=== PATIENT | female | born 1950 | race Caucasian/White ===

== ENCOUNTER 2018-11-04 12:21 | Inpatient (IN) | payer MEDICARE, MEDICAID ==
[2018-11-04] VITALS (38 sets, daily range): BP systolic 48–166; BP diastolic 23–105
[~2018-11-04] VITALS: Ht 165.1 cm; Wt 87.1 kg
--- NOTE | 2018-11-04 12:21 | NUR ---
PT BIBRA FROM APARTMENT FOUND FACE DOWN ON THE FLOOR; VOMITTED COFFEE GROUND EMESIS PER REPORT; BS HAND STONECUTTER "HI"; LAST KNOWN WELL PER FAMILY WAS LAST NIGHT. PT AAOX0, RESONSIVE TO PAINFUL STIMULI, NON-VERBAL, PT ON MONITOR; RT AND MD AT BEDSIDE
[2018-11-04] MEDS ORDERED: PANTOPRAZOLE 80 MG in IV NS 0.9% 500 ML IV ONE (12:30)
[2018-11-04] MEDS ORDERED: ONDANSETRON HCL/PF 4 MG/2 ML VIAL IVP ONE (12:30)
[2018-11-04] MEDS ORDERED: IV NS 0.9% 1,000 ML BAG IV ONE ×2 (12:30→14:00)
[2018-11-04] MEDS ORDERED: ONDANSETRON HCL/PF 4 MG/2 ML VIAL ONE (12:37)
[2018-11-04 12:43] LABS: BASOPHILS % (AUTO) 0.1 % (0.0-2.0); HEMATOCRIT 42 % (33-45); HEMOGLOBIN 13.1 g/dL (11.5-14.8); LYMPHOCYTES # (AUTO) 1.8 /CMM (0.8-4.8); LYMPHOCYTES % (AUTO) 6.8 % (20.0-44.0); MEAN CORPUSCULAR HGB CONC 31 g/dl (31.0-36.0); MEAN CORPUSCULAR VOLUME 86 fL (82-100); MONOCYTES # (AUTO) 3.2 /CMM (0.1-1.30); MONOCYTES % (AUTO) 11.9 % (2.0-12.0); NEUTROPHILS # (AUTO) 21.6 /CMM (1.8-8.9); NEUTROPHILS % (AUTO) 81.2 % (43.0-81.0); PLATELET COUNT (AUTO) 579 /CMM (150-450); RED BLOOD CELL COUNT(AUTO) 4.88 MIL/uL (4.0-5.2); WHITE BLOOD COUNT (AUTO) 26.7 K/uL (4.3-11.0)
[2018-11-04] MEDS ORDERED: PRAV20TA4 PO (12:48)
[2018-11-04] MEDS ORDERED: GLIP5TAB13 PO (12:48)
[2018-11-04] MEDS ORDERED: ATEN25TA PO (12:48)
[2018-11-04] MEDS ORDERED: METF-440 PO (12:48)
--- NOTE | 2018-11-04 12:57 | NUR ---
CALLED NURSING SUP REQUESTED ICU BED FOR THIS PATIENT
[2018-11-04 13:14] LABS: ALANINE AMINOTRANSFERASE 55 U/L (12-78); ALBUMIN 4.1 g/dL (3.4-5.0); ALKALINE PHOSPHATASE 97 U/L (46-116); ASPARTATE AMINOTRANSFERASE 133 U/L (15-37); BILIRUBIN,DIRECT 0.1 mg/dL (0.0-0.2); BILIRUBIN,TOTAL 0.6 mg/dL (0.2-1.0); CALCIUM, SERUM 9.2 mg/dL (8.5-10.1); CARBON DIOXIDE 20 mmol/L (21-32); CHLORIDE 94 mmol/L (98-107); CREATININE 1.7 mg/dL (0.6-1.3); SODIUM SERUM 136 mmol/L (136-145); TOTAL PROTEIN, SERUM 8.6 g/dL (6.4-8.2); UREA NITROGEN, BLOOD 47 mg/dL (7-18)
--- NOTE | 2018-11-04 13:15 | NUR ---
PT ADMIT TO ROOM 261 ICU
[2018-11-04 13:19] LABS: GLUCOSE 687 mg/dL (74-106)
[2018-11-04] MEDS ORDERED: CEFTRIAXONE 1GM BAG (ER ONLY) 1 GM/50 ML PIGGYBACK IV ONE (13:30)
[2018-11-04 13:43] LABS: APPEARANCE,URINE Clear (CLEAR); BILIRUBIN,URINE SMALL (NEGATIVE); BLOOD, URINE Moderate Ery/uL (NEGATIVE); COLOR,URINE Yellow (YELLOW); KETONES,URINE 40 (NEGATIVE); LEUKOCYTE ESTERASE ,URINE Negative (NEGATIVE); NITRITE, URINE Negative (NEGATIVE); PH,URINE 5.5 (5.0-8.0); PROTEIN,URINE >=300 mg/dl (NEGATIVE); UGLUCOSE 500 MG/DL mg/dL (NEGATIVE); UROBILINOGEN,URINE 0.2 EU/dL (0.2)
[2018-11-04] MEDS ORDERED: INSULIN REGULAR, HUMAN 100 UNIT/ML 10 ML VIAL ONE (13:45)
[2018-11-04] MEDS ORDERED: CEFTRIAXONE 1GM BAG (ER ONLY) 50 ML IV ONE (13:45)
--- NOTE | 2018-11-04 13:47 | NUR ---
PANEL ON-CALL PAGED
[2018-11-04] MEDS ORDERED: INSULIN REGULAR, HUMAN 100 UNIT/ML 10 ML VIAL IV ONE (14:00)
[2018-11-04 14:07] LABS: BACTERIA,URINE Many /HPF (None Seen); SQUAMOUS EPITHELIAL CELL,UR Many /HPF (None Seen)
[2018-11-04 14:08] LABS: URINE AMORPHOUS URATE Many /HPF (None Seen); WBC,URINE 0-2 /HPF (0-3)
--- NOTE | 2018-11-04 14:10 | NUR ---
REGULAR INSULIN GIVEN 4UNITS IVP PER MD ORDER
--- NOTE | 2018-11-04 14:24 | NUR ---
PT TRANSFERRED TO ICU 261 VIA ACLS PROTOCOL
--- NOTE | 2018-11-04 14:30 | NUR ---
PATIENT RECEIVED FROM ER. ROOM AIR 92% PLACED ON 2 L NC. AMS MOVES TO LOCALIZED PAIN. UNABLE TO FOLLOW COMMANDS. PATIENT WARM TO TOUCH 99.2 TEMP.NG TUBE INSERTED IN ER PATENT. IV SITES C/D/I/P. PENDING MIDLINE INSERTION. SY CATH INTACT DRAINING TO GRAVITY. TELE SINUS TACHY WITH OCCASIONAL PAC'S. JELANI AWARE OF ADMISSION
--- NOTE | 2018-11-04 15:00 | NUR ---
CHERELLE GURROLA AT BEDSIDE FOR MIDLINE INSERTION
--- NOTE | 2018-11-04 15:35 | NUR ---
natalee aware of patient breathing. increase wob, shallow. per strategic account executive please obtain abg
[2018-11-04] MEDS ORDERED: ASPI81TA44 PO (15:47)
[2018-11-04] MEDS ORDERED: MELA3TAB PO (15:47)
[2018-11-04] MEDS ORDERED: VIT1CAPS9 PO (15:47)
[2018-11-04] MEDS ORDERED: DOCU-141 PO (15:47)
[2018-11-04] MEDS ORDERED: UBID100C13 PO (15:47)
[2018-11-04] MEDS ORDERED: VITA1TAB56 PO (15:47)
[2018-11-04] MEDS ORDERED: CHOL400T11 PO (15:47)
[2018-11-04] MEDS ORDERED: ACET1TAB25 PO (15:48)
[2018-11-04] MEDS ORDERED: METH500T6 PO (15:48)
[2018-11-04 15:55] LABS: ABG BASE EXCESS -6.8 mmol/L; ABG OXYGEN SATURATION 93.3 % (92.0-98.5); ABG PCO2 33.2 mmHg (35.0-45.0); AaDO2 48.6 mmHg; COHb 0.3 % (0.5-1.5); MetHb 0.5 % (0.0-1.5); O2Hb 92.6 % (94.0-97.0); SITE, ABG Right Radial; VENT MODE, BG NC 2L
[2018-11-04] MEDS ORDERED: MAG HYDROX/AL HYDROX/SIMETH 30 ML UDC PO PRN (16:00)
[2018-11-04] MEDS ORDERED: INSULIN REGULAR, HUMAN 100 UNIT/ML 3 ML VIAL IV ONE (16:00)
[2018-11-04] MEDS ORDERED: INSULIN REGULAR, HUMAN 100 UNIT/ML 3 ML VIAL IV SCH (16:00)
[2018-11-04] MEDS ORDERED: ONDANSETRON HCL/PF 4 MG/2 ML VIAL IVP PRN (16:00)
[2018-11-04] MEDS ORDERED: MAGNESIUM HYDROXIDE 30 ML UDC PO PRN (16:00)
[2018-11-04] MEDS ORDERED: ACETAMINOPHEN 325 MG TABLET PO PRN (16:00)
[2018-11-04] MEDS: IV NS 0.9% 1,000 ML IV PRN ×2 (16:11→20:55)
[2018-11-04] MEDS ORDERED: PIPERACILLIN /TAZOBACTAM 2.25 G in IV D5W 50 ML IV ONE (16:30)
[2018-11-04] MEDS ORDERED: DOCUSATE SODIUM 100 MG CAPSULE PO PRN (16:30)
[2018-11-04] MEDS ORDERED: FEE PK DOSING 1 MIN EA MC ONE (16:40)
[2018-11-04] MEDS: PANTOPRAZOLE 40 MG VIAL IV SCH (17:06)
[2018-11-04] MEDS ORDERED: HEPARIN SODIUM, PORCINE 5000 UNITS/1 ML VIAL IV STA (17:16)
[2018-11-04] MEDS: HEPARIN INFUSION/D5W 500 ML IV PRN (17:28)
[2018-11-04] MEDS: INSULIN REGULAR, HUMAN 100 UNIT in IV NS 0.9% 99 ML IV PRN ×4 (17:29→18:33)
[2018-11-04 17:47] LABS: CALCIUM, SERUM 8.2 mg/dL (8.5-10.1); CREATININE 1.5 mg/dL (0.6-1.3)
[2018-11-04] MEDS: ASPIRIN 300 MG/SUPP.RECT RC SCH (17:59)
[2018-11-04] MEDS: VANCOMYCIN 0.75 GM in IV D5W 250 ML IV SCH (17:59)
--- NOTE | 2018-11-04 18:30 | NUR ---
PATIENT FEELS WARM TO TOUCH. CORE TEMP MONITORING INPLACE AND 101.8 READING. COOLING MEASURES APPLIED FAN AND ICE. WILL MONITOR
--- NOTE | 2018-11-04 19:20 | NUR ---
ICU/BOOT REPAIRER PER ANN DOBSON SAID SHE DID NOT WANT TO SENT OUT THE BODY FLUIDS DUE TO THE FACT IT WAS GOING TO TAKE 5-6 DAYS AND IS GOING TO [place].
--- NOTE | 2018-11-04 19:20 | NUR ---
JELANI AND DR JARQUIN UPDATED ON ALL CRITICAL VALUES; SEE CRITICAL VALUE INTERVENTIONS. ALL ORDERS CARRIED OUT. CARE ENDORSED TO PETER BURNETT FOR MARK. INSULIN GTT AND HEPATIN GTT RUNNING PER ORDERS; SEE SPREADSHEET. IVF PER MD ORDER. NG TUBE SUCTION ON HOLD S/T TYLENOL ADMIN. SAFETY, SKIN, ASPIRATION PRECAUTIONS IN PLACE AND MONITORED
--- NOTE | 2018-11-04 20:10 | NUR ---
ICU/ANGLE DOZER OPERATOR ANN PALOMARES AT BEDSIDE TO PLACE ART LINE, ELLIOT CLINE RN OBTAINED A CONSENT FOR LINE PLACEMENT THROUGH THE PT'S SISTER WHO IS SLOAN.
[2018-11-04 20:27] LABS: ABG BASE EXCESS -5.6 mmol/L; ABG OXYGEN SATURATION 95.8 % (92.0-98.5); ABG PCO2 31.7 mmHg (35.0-45.0); ABG PH 7.384 (7.350-7.450); ABG PO2 91.1 mmHg (75.0-100.0); AaDO2 78.3 mmHg; COHb 0.6 % (0.5-1.5); MetHb 0.4 % (0.0-1.5); O2Hb 94.8 % (94.0-97.0); SITE, ABG A-Line
--- NOTE | 2018-11-04 20:30 | NUR ---
ICU/HOG CUTTER POST A-LINE INSERTION, ABG WAS DONE. ANN PALOMARES SAW RESULTED ABG. NO NEW ORDERS RECEIVED AT THIS TIME.
--- NOTE | 2018-11-04 20:30 | NUR ---
ICU/SKI TOPPER BS DONE WAS 378, FORMULA IS 378 X 2 THEN DIVIDE 100 GIVES THE UNIT DOSE, SEE FLOWSHEET FOR DOSAGE WHICH WAS 8 UNITS
--- NOTE | 2018-11-04 20:30 | NUR ---
ICU/FILTER PRESS OPERATOR SR COMMUNITY MANAGER IS AT BEDSIDE TO BEGIN STUDY, ANN PALOMARES IS AWARE AND AT BEDSIDE.
--- NOTE | 2018-11-04 20:40 | NUR ---
ICU/DIRECTOR OF OUTREACH PT'S RECTAL TEMP IS 102.2, OBTAINED ORDER FOR COOLING BLANKET. WILL CONTINUE TO MONITOR THIS PT'S TEMP
[2018-11-04] MEDS ORDERED: PIPERACILLIN /TAZOBACTAM 3.375 G in IV D5W 100 ML IV SCH (21:00)
--- NOTE | 2018-11-04 21:00 | NUR ---
ICU/RN EMPLOYEE HEALTH EEG STUDY FINISHED, SENT TO DR MORA, AWAIT ANY ORDERS.
--- NOTE | 2018-11-04 21:30 | NUR ---
ICU/SHREDDING MACHINE OPERATOR BS DONE WAS 199, FORMULA IS 199 X 2 THEN DIVIDE 100 GIVES THE UNIT DOSE, SEE FLOWSHEET FOR DOSAGE WHICH WAS 4 UNITS
--- NOTE | 2018-11-04 22:08 | NUR ---
ICU/COMMUNITY SERVICES OFFICER BS DONE WAS 214, FORMULA IS 214 X 2 THEN DIVIDE 100 GIVES THE UNIT DOSE, SEE FLOWSHEET FOR DOSAGE UNIT DOSAGE WAS 4 UNITS OF INSULIN
--- NOTE | 2018-11-04 23:57 | NUR ---
ICU/SEPTIC TANK SETTER PT APPEARED TO HAVE SEVER TWITCHING, CALLED RISK MGR FOR ATIVAN ORDER. HOWEVER ANN ESQUIVEL SAID NO DUE TO POSSIBLE COMPROMISE TO NEURO AND RESP. SYSTEM. BUT STAT ABG NOW
[2018-11-05] VITALS (51 sets, daily range): BP systolic 101–161; BP diastolic 43–77
[2018-11-05] MEDS: PIPERACILLIN /TAZOBACTAM 3.375 G in IV D5W 100 ML IV SCH ×2 (00:02→07:50)
[2018-11-05 00:09] LABS: CALCIUM, SERUM 7.6 mg/dL (8.5-10.1); CREATININE 1.3 mg/dL (0.6-1.3); POTASSIUM 3.8 mmol/L (3.5-5.1)
--- NOTE | 2018-11-05 00:10 | NUR ---
ICU/HOSPICE MUSIC THERAPIST BMP AND PTT DONE FOR SLIDING SCALE FOR BOTH HEPARIN AND INSULIN
[2018-11-05 00:12] LABS: ABG BASE EXCESS -4.3 mmol/L; ABG OXYGEN SATURATION 95.8 % (92.0-98.5); ABG PH 7.397 (7.350-7.450); ABG PO2 91.3 mmHg (75.0-100.0); AaDO2 98.3 mmHg; COHb 0.2 % (0.5-1.5); MetHb 0.5 % (0.0-1.5); O2Hb 95.1 % (94.0-97.0); SITE, ABG A-Line; VENT MODE, BG NASAL CANNULA
[2018-11-05] MEDS: IV NS 0.9% 1,000 ML IV PRN (00:29)
--- NOTE | 2018-11-05 00:30 | NUR ---
ICU/TRANSFORMATION SPECIALIST ANION GAP IS 15, GAVE ORDERS TO CHANGE IVF TO D5 1/2 NS @ 150. THEN PTT IS 34.5 FOLLOWING SCALE BOLUS OF 4500 UNITS AND INCREASED DRIP OF HEPARIN TO 250 PLUS 1200 UNITS IS 1450 UNITS CHARGE NURSE AWARE AND IS CARRYING OUT ORDERS. PT IS CURRENTLY GETTING READY FOR HEAD CT.
[2018-11-05] MEDS ORDERED: HEPARIN SODIUM, PORCINE 5000 UNITS/1 ML VIAL IV ONE (01:00)
--- NOTE | 2018-11-05 01:00 | NUR ---
ICU/WORKERS' COMPENSATION MAGISTRATE PT DOWN TO HEAD CT W/O CONTRAST
[2018-11-05] MEDS: IV D5/0.45 NACL 1,000 ML IV PRN ×4 (01:08→20:02)
--- NOTE | 2018-11-05 01:30 | NUR ---
ICU/PHARMACY SERVICES DIRECTOR PT BACK FROM HEAD CT
--- NOTE | 2018-11-05 02:30 | NUR ---
ICU/TELECOMMUNICATIONS OFFICER CT RESULTED WHICH WAS NEGATIVE
--- NOTE | 2018-11-05 03:14 | NUR ---
ICU/AUTOMOTIVE COLLISION ESTIMATOR RAPID INFLUENZA DONE AND LAB CALLED
[2018-11-05] MEDS: PANTOPRAZOLE 40 MG VIAL IV SCH ×2 (04:47→16:38)
[2018-11-05] MEDS: BLOOD SUGAR DIAGNOSTIC 1 EACH STRIP IN SCH ×11 (05:00→20:18)
[2018-11-05 05:15] LABS: BASOPHILS # (AUTO) 0.1 /CMM (0.0-0.2); BASOPHILS % (AUTO) 0.2 % (0.0-2.0); HEMATOCRIT 30 % (33-45); HEMOGLOBIN 9.6 g/dL (11.5-14.8); LYMPHOCYTES % (AUTO) 9.7 % (20.0-44.0); MEAN CORPUSCULAR HGB CONC 32 g/dl (31.0-36.0); MEAN CORPUSCULAR VOLUME 84 fL (82-100); MONOCYTES # (AUTO) 2.5 /CMM (0.1-1.30); MONOCYTES % (AUTO) 12.4 % (2.0-12.0); NEUTROPHILS % (AUTO) 77.7 % (43.0-81.0); PLATELET COUNT (AUTO) 362 /CMM (150-450); RED BLOOD CELL COUNT(AUTO) 3.59 MIL/uL (4.0-5.2); WHITE BLOOD COUNT (AUTO) 20.5 K/uL (4.3-11.0)
[2018-11-05 05:36] LABS: CALCIUM, SERUM 7.4 mg/dL (8.5-10.1); MAGNESIUM 1.8 mg/dL (1.8-2.4); PHOSPHORUS 2.4 mg/dL (2.5-4.9)
[2018-11-05 05:44] LABS: THYROID STIMULATING HORMONE 0.604 uIU/mL (0.358-3.74)
--- NOTE | 2018-11-05 06:10 | NUR ---
ICU/DRAMATIC TEACHER PT IS PULLING AT LINES, PLACED LEFT RESTRAINT ON PT TO AVOID PT REMOVING ART-LINE.
--- NOTE | 2018-11-05 07:30 | NUR ---
received patient. s/p arterial line insertion by natalee last night; bp stable. ivf per md order. s/p eeg with pending results. patient does appear to have seizure activity noted right side of mouth twitching; will f/u with orders. patient no improvement in mental status from last night change of shift. heparin and insulin gtt per order; see spreadsheet. astorga cath to gravity. ng tube to lis. safety, skin, aspiration precautions in place and will monitor.
--- NOTE | 2018-11-05 07:37 | NUR ---
ICU/SANITATION TRUCK CLEANER TROP ADDED TO AM LABS DUE TO HIGH LEVEL YESTERDAY.
[2018-11-05] MEDS: INSULIN REGULAR, HUMAN 100 UNIT in IV NS 0.9% 99 ML IV PRN ×2 (07:45)
--- NOTE | 2018-11-05 08:11 | NUR ---
PATIENT PTT RESULTS 53.9 NO CHANGE PER PROTOCOL. WILL ORDER AM PTT LEVEL
[2018-11-05 08:28] LABS: CALCIUM, SERUM 7.4 mg/dL (8.5-10.1); CREATININE 1.2 mg/dL (0.6-1.3); POTASSIUM 3.7 mmol/L (3.5-5.1)
--- NOTE | 2018-11-05 08:39 | NUR ---
SPOKE WITH JELANI TALAMANTES. AWARE AND UPDATED ON AM LABS. AWARE PATIENT CONTINUES TO HAVE FOCAL TWITCHING OF THE RIGHT SIDE OF THE MOUTH. AND TEMP 100.7 ON COOLING BLANKET. BACTERIOLOGY RESEARCH ASSISTANT IN CONTACT WITH DR MORA. PENDING UPDATED ORDERS
[2018-11-05] MEDS ORDERED: NS 0.9% IV ONE (09:00)
[2018-11-05] MEDS ORDERED: ATORVASTATIN 10 MG TABLET PO SCH (09:00)
[2018-11-05] MEDS ORDERED: PHENYTOIN SODIUM IV ONE (09:00)
[2018-11-05] MEDS ORDERED: ATENOLOL 25 MG TABLET PO SCH (09:00)
[2018-11-05] MEDS ORDERED: CHOLECALCIFEROL (VITAMIN D 3) 400 UNIT TABLET PO SCH (09:00)
[2018-11-05] MEDS ORDERED: phenytoin SODIUM IV 1,000 MG in IV NS 0.9% 100 ML IV ONE (09:30)
[2018-11-05] MEDS: ACYCLOVIR IV 500 MG in IV NS 0.9% 100 ML IV SCH ×2 (09:34→21:17)
[2018-11-05] MEDS: ASPIRIN 300 MG/SUPP.RECT RC SCH (09:35)
--- NOTE | 2018-11-05 10:00 | NUR ---
per er md please give 1mg ativan ivp and vecuronium 80mg for intubation. orders carried out by .
[2018-11-05] MEDS ORDERED: LORAZEPAM INJ 2 MG/ML VIAL ONE (10:04)
--- NOTE | 2018-11-05 10:05 | NUR ---
patient intubated by er md. albright at bedside. vent settings per spreadsheet
--- NOTE | 2018-11-05 10:10 | NUR ---
RT NOTE: LATE ENTRY-PATIENT WAS ORALLY INTUBATED BY ER MD WITH A 7.0 ETT SECURED AT 22CM MID LIP LINE. POSITIVE COLOR CHANGE ON CAPNOMETER. BILATERAL B/S NOTED. PATIENT PLACED ON PB 840 VENT. SETTINGS PER MD ORDER. ALARMS VERIFIED AND AUDIBLE. SUCTIONED AND LAVAGED THIN CLEAR/BLOOD TINGED SECRETIONS. AMBU BAG AT [facility].
[2018-11-05] MEDS ORDERED: LORAZEPAM INJ 2 MG/ML VIAL IV ONE ×2 (10:30)
[2018-11-05] MEDS ORDERED: VECURONIUM 10 MG VIAL IV ONE ×2 (10:51→16:20)
[2018-11-05] MEDS ORDERED: DEXTROSE 50%-WATER 50 ML DISP.SYRIN IV PRN (11:30)
[2018-11-05] MEDS ORDERED: K PHOS NEUTRAL 250 MG TABLET PO ONE (12:00)
[2018-11-05 12:20] LABS: ABG BASE EXCESS -4.6 mmol/L; ABG OXYGEN SATURATION 95.9 % (92.0-98.5); ABG PH 7.293 (7.350-7.450); ABG PO2 95.9 mmHg (75.0-100.0); AaDO2 136.4 mmHg; COHb 0.2 % (0.5-1.5); MetHb 0.4 % (0.0-1.5); O2Hb 95.3 % (94.0-97.0); PEEP,BG 0 cm H2O; SITE, ABG A-Line; VT, ABG 500 mL
[2018-11-05] MEDS: HEPARIN INFUSION/D5W 500 ML IV PRN (12:25)
[2018-11-05] MEDS: VANCOMYCIN 0.75 GM in IV D5W 250 ML IV SCH (12:25)
[2018-11-05] MEDS: OSELTAMIVIR PHOSPHATE 75 MG CAPSULE PO SCH (12:40)
[2018-11-05] MEDS: INSULIN REGULAR, HUMAN 100 UNIT/ML 3 ML VIAL SQ PRN ×3 (12:40→20:26)
--- NOTE | 2018-11-05 12:53 | NUR ---
neuro consult at bedside
[2018-11-05 13:18] LABS: CALCIUM, SERUM 7.1 mg/dL (8.5-10.1); CREATININE 1.2 mg/dL (0.6-1.3); POTASSIUM 3.8 mmol/L (3.5-5.1)
[2018-11-05] MEDS: PIPERACILLIN /TAZOBACTAM 3.375 G in IV D5W 50 ML IV SCH ×2 (13:44→19:41)
[2018-11-05] MEDS: LORAZEPAM INJ 2 MG/ML VIAL IV PRN ×4 (15:25→23:41)
[2018-11-05] MEDS: ACETAMINOPHEN 650 MG/SUPP.RECT RC PRN ×2 (15:26→21:24)
--- NOTE | 2018-11-05 16:35 | NUR ---
notified natalee patient blood sugar 424 repeat. per diver's tender continue with sliding scale 10u and order one time 8 units sq once
[2018-11-05] MEDS ORDERED: ALBUTEROL FS 2.5 MG/0.5 ML VIAL.NEB NEB PRN (17:00)
[2018-11-05] MEDS ORDERED: IPRATROPIUM NEB FS 0.5 MG/2.5 ML AMPUL.NEB NEB PRN (17:00)
[2018-11-05] MEDS ORDERED: INSULIN GLARGINE, 100 UNIT/ML CARTRIDGE SQ ONE (17:00)
--- NOTE | 2018-11-05 17:00 | NUR ---
dr avelar at bedside. updated on patient condition, labs, vs, gastric output. aware echo done
[2018-11-05 18:44] LABS: ABG OXYGEN SATURATION 98.4 % (92.0-98.5); ABG PCO2 26.4 mmHg (35.0-45.0); ABG PH 7.415 (7.350-7.450); ABG PO2 152.4 mmHg (75.0-100.0); AaDO2 102.4 mmHg; COHb 0.2 % (0.5-1.5); MetHb 0.6 % (0.0-1.5); O2Hb 97.6 % (94.0-97.0); PEEP,BG 0 cm H2O; SITE, ABG A-Line; VT, ABG 500 mL
--- NOTE | 2018-11-05 18:48 | NUR ---
SPOKE WITH DR VUONG AND NOTIFIED NO SCHEDULED DILANTIN ORDER. PER 100MG Q8H IV AND PLEASE OBTAIN DILANTIN LEVEL TOMORROW AM BEFORE 0500 DOSE
--- NOTE | 2018-11-05 19:22 | NUR ---
CARE ENDORSED TO RN OLIVIA FOR MARK. SAFETY, SEIZURE, ISOLATION (R/O MENINGITIS PER RADIO PERSONALITY), SKIN, AND ASPIRATION PRECAUTIONS MONITORED THROUGHOUT DAY.
--- NOTE | 2018-11-05 19:44 | NUR ---
PT RECEIVED ORALLY INTUBATED ETT TUBE SECURE AT THE LIP AND PATENT. PT ON MECHANICAL VENTILATION WITH NOTED SETTINGS. APPEARS TO BE TOLERATING WELL. SX DONE SMALL AMOUNT OF THICK WHITE/YELLOW SECRETIONS. BREATH SOUNDS EQUAL BILATERALLY. ALL VENTILATOR ALARMS SOUND AND AUDIBLE. VENT PLUGGED INTO RED OUTLET. AMBU BAG AT BEDSIDE. WILL CONTINUE TO MONITOR. Addendum: 11/05/18 at 1950 by JESSICA MEEK RT Amended: Links added.
[2018-11-05] MEDS ORDERED: phenytoin SODIUM IV 250 MG/5 ML VIAL IV ONE (20:12)
[2018-11-05] MEDS: PHENYTOIN SODIUM IV 50 MG/ML VIAL IV SCH (20:17)
[2018-11-05] MEDS: ATORVASTATIN 40 MG TABLET PO SCH (21:07)
[2018-11-06] VITALS (50 sets, daily range): BP systolic 114–170; BP diastolic 45–97
--- NOTE | 2018-11-06 | NUR ---
CREDIT RISK MANAGER NOTES PER CHARGE NURSE ED, NO NEED TO TAKE PHOTOGRAPHS OF WOUNDS/SKIN ISSUES SINCE PATIENT WAS RECENTLY ADMITTED
[2018-11-06] MEDS: BLOOD SUGAR DIAGNOSTIC 1 EACH STRIP IN SCH ×6 (01:30→21:27)
[2018-11-06] MEDS: PIPERACILLIN /TAZOBACTAM 3.375 G in IV D5W 50 ML IV SCH ×4 (01:30→19:35)
[2018-11-06] MEDS: INSULIN REGULAR, HUMAN 100 UNIT/ML 3 ML VIAL SQ PRN ×6 (01:42→21:34)
[2018-11-06] MEDS: IV D5/0.45 NACL 1,000 ML IV PRN ×3 (03:11→16:38)
[2018-11-06] MEDS: PANTOPRAZOLE 40 MG VIAL IV SCH ×2 (05:00→16:23)
[2018-11-06] MEDS ORDERED: phenytoin SODIUM IV 250 MG/5 ML VIAL IV ONE (05:14)
[2018-11-06] MEDS: PHENYTOIN SODIUM IV 50 MG/ML VIAL IV SCH ×2 (05:15→05:43)
[2018-11-06 05:17] LABS: BASOPHILS % (AUTO) 0.1 % (0.0-2.0); EOSINOPHILS % (AUTO) 0.1 % (0.0-6.0); HEMATOCRIT 24 % (33-45); HEMOGLOBIN 7.8 g/dL (11.5-14.8); LYMPHOCYTES # (AUTO) 1.8 /CMM (0.8-4.8); LYMPHOCYTES % (AUTO) 13.1 % (20.0-44.0); MEAN CORPUSCULAR HGB CONC 33 g/dl (31.0-36.0); MEAN CORPUSCULAR VOLUME 84 fL (82-100); MONOCYTES # (AUTO) 1.4 /CMM (0.1-1.30); NEUTROPHILS # (AUTO) 10.6 /CMM (1.8-8.9); NEUTROPHILS % (AUTO) 76.7 % (43.0-81.0); PLATELET COUNT (AUTO) 255 /CMM (150-450); RED BLOOD CELL COUNT(AUTO) 2.86 MIL/uL (4.0-5.2); WHITE BLOOD COUNT (AUTO) 13.9 K/uL (4.3-11.0)
[2018-11-06 05:25] LABS: CALCIUM, SERUM 6.9 mg/dL (8.5-10.1); CREATININE 1.4 mg/dL (0.6-1.3); MAGNESIUM 1.5 mg/dL (1.8-2.4); PHOSPHORUS 3.1 mg/dL (2.5-4.9); POTASSIUM 3.2 mmol/L (3.5-5.1)
[2018-11-06] MEDS ORDERED: VANCOMYCIN 1 GM VIAL ONE (05:46)
[2018-11-06] MEDS: VANCOMYCIN 1 GM in IV D5W 250 ML IV SCH ×2 (05:48→23:23)
[2018-11-06] MEDS: HEPARIN INFUSION/D5W 500 ML IV PRN ×2 (06:52→21:42)
--- NOTE | 2018-11-06 07:15 | NUR ---
RECEIVED CARE OF PATIENT FROM IZABELA BAKER. PATIENT ETT 7. TOLERATING VENT SETTINGS. IV SITES C/D/I/P. DERECK BP MONITORING; STABLE BP. IVF AND MEDICATIONS RUNNING PER MD ORDER; SEE SPREADSHEET. SY CATH DRAINING TO GRAVITY. NGT TO LIS; COFFEE GROUND EMESIS ABOUT 100ML LAST NIGHT; WILL MONITOR. PATIENT T MAX LAST NIGHT 101.1 AND TOLERATED COOLING MEASURES. PATIENT STILL NOT FOLLOWING COMMANDS, HOWEVER IS OPENING EYES, MAKING EYE CONTACT AT TIMES, MOVING ALL EXTREMITIES. AWAKE TO NAME. SAFETY, SKIN, ASPIRATION, SEIZURE, ISOLATION PRECAUTIONS IN PLACE AND WILL MONITOR.
[2018-11-06] MEDS: OSELTAMIVIR PHOSPHATE 75 MG CAPSULE PO SCH ×2 (08:30→16:35)
[2018-11-06] MEDS: ASPIRIN 300 MG/SUPP.RECT RC SCH (08:32)
--- NOTE | 2018-11-06 09:20 | NUR ---
DR RUIZ AT BEDSIDE. UPDATED ON PATIENT CONDITION AND STATUS
[2018-11-06] MEDS: ACYCLOVIR IV 500 MG in IV NS 0.9% 100 ML IV SCH (09:42)
[2018-11-06] MEDS: INSULIN GLARGINE, 100 UNIT/ML CARTRIDGE SQ SCH ×2 (10:00→21:36)
[2018-11-06] MEDS: POTASSIUM CHLORIDE 20 MEQ TAB.PRT.SR PO SCH ×2 (10:50→12:10)
[2018-11-06] MEDS: Magnesium 1GM/D5W 100ML PREMIX 100 ML IV SCH ×2 (10:50→12:10)
[2018-11-06] MEDS ORDERED: FOSPHENYTOIN SODIUM PE 100 MG/2 ML VIAL IV SCH (13:00)
--- NOTE | 2018-11-06 13:20 | NUR ---
PER PROTOCOL. PTT 44.4 WILL INCREASE GTT BY 150 U/HOUR. NOW RUNNING 1750U/HOUR
[2018-11-06 16:48] LABS: BASOPHILS % (AUTO) 0.2 % (0.0-2.0); EOSINOPHILS % (AUTO) 0.3 % (0.0-6.0); HEMATOCRIT 27 % (33-45); HEMOGLOBIN 8.6 g/dL (11.5-14.8); LYMPHOCYTES # (AUTO) 2.8 /CMM (0.8-4.8); LYMPHOCYTES % (AUTO) 17.2 % (20.0-44.0); MEAN CORPUSCULAR HGB CONC 32 g/dl (31.0-36.0); MEAN CORPUSCULAR VOLUME 85 fL (82-100); MONOCYTES # (AUTO) 1.7 /CMM (0.1-1.30); MONOCYTES % (AUTO) 10.8 % (2.0-12.0); NEUTROPHILS # (AUTO) 11.5 /CMM (1.8-8.9); NEUTROPHILS % (AUTO) 71.5 % (43.0-81.0); PLATELET COUNT (AUTO) 266 /CMM (150-450); RED BLOOD CELL COUNT(AUTO) 3.14 MIL/uL (4.0-5.2)
--- NOTE | 2018-11-06 17:31 | NUR ---
RT END OF THE SHIFT REPORT;PT .REC. 0700AM SHIFT PT. 68 Y OLD FEMALE INTUBATED ETT# 7.0@ 22 CM SECURED AT THE LIP. REMAIN STABLE. PT. TOLERATING VENT SETTINGS. SX'D FOR SMALL AMT OF WHITE SECRETIONS. EQUAL CHEST RISE NOTED. CUFF ROAD MARKER. VENT ALARMS SET AND AUDIBLE. AMBU BAG AT BEDSIDE. VENT PLUGGED INTO RED OUTLET. WILL CONTINUE TO MONITOR. HME CHANGED. REPORT WILL PASS TO PM SHIFT. Addendum: 11/06/18 at 1733 by JUDE MINOR RT Amended: Links added.
[2018-11-06] MEDS ORDERED: FUROSEMIDE 20 MG/2 ML VIAL IV ONE (18:00)
--- NOTE | 2018-11-06 18:21 | NUR ---
PER DR VUONG PLEASE HAVE PATIENT TAKE DILANTIN 100MG 0500, 1300 AND 2100 DOSE 200MG IV. NOTIFIED PHARMACY. PER NO NEED TO CHECK LEVEL; HE WILL ORDER
[2018-11-06] MEDS: ACETAMINOPHEN 650 MG/SUPP.RECT RC PRN (18:39)
--- NOTE | 2018-11-06 19:30 | NUR ---
CARE ENDORSED TO RN OLIVIA. PATIENT MORE AWAKE AT THIS TIME. SAFETY, SKIN, ASPIRATION, SEIZURE, ISOLATION PRECAUTIONS MONITORED THROUGHOUT DAY. VENT SETTINGS PER ORDER AND ETT 7.0/22 TOLERATED WELL. IV SITES C/D/I/P WITH MEDICATIONS RUNNING PER ORDER; SEE SPREADSHEET.
--- NOTE | 2018-11-06 19:31 | NUR ---
MAJOR GIFTS OFFICER INITIAL SHIFT NOTES RECEIVED PATIENT IN BED, AWAKE, ANXIOUS AT THIS TIME. WILL ADMINISTER ATIVAN. ORALLY INTUBATED, ON MECHANICAL VENTILATION AT PRESCRIBED SETTINGS, TOLERATING WELL. BILATERAL SOFT WRIST RESTRAINTS IN PLACE, SKIN ASSESSED FOR CIRCULATION. BEDSIDE MONITOR SHOWS SINUS RHYTHM. SHREE PICC RUNNING HEPARIN DRIP @ 1750 UNITS/HR, EMILIA MIDLINE, WITH LEFT AND RIGHT HAND PERIPHERAL IVs. COOLING BLANKET IN PLACE, CORE TEMP READING 100.0. SY CATHETER DRAINING YELLOW URINE. WILL MONITOR CLOSELY
[2018-11-06] MEDS: LORAZEPAM INJ 2 MG/ML VIAL IV PRN (19:35)
--- NOTE | 2018-11-06 19:35 | NUR ---
JUKE BOX MECHANIC NOTES PATIENT NOTED TO BE RESTLESS/ANXIOUS, COUGHING, SETTING OFF VENTILATOR ALARMS, MOVING EXTREMITIES. UNABLE TO FOLLOW COMMANDS. ATIVAN 1MG ADMINISTERED. WILL MONITOR CLOSELY
--- NOTE | 2018-11-06 20:21 | NUR ---
RECEIVED PT INTUBATED 7.0 SECURED AT 22CM AT THE LIP. PT TOLERATING VENT SETTINGS. SX'D FOR SML AMT OF THICK GROVER SECRETIONS. VENT ALARMS SET AND AUDIBLE. AMBU BAG AT BEDSIDE. ETT SECURE, CUFF SHRIMP BOAT CAPTAIN. VENT PLUGGED INTO RED OUTLET. WILL CONTINUE TO MONITOR. Addendum: 11/06/18 at 2022 by GENESIS MEZA RT Amended: Links added.
--- NOTE | 2018-11-06 20:52 | NUR ---
WARPER CREELER NOTES aPTT RESULT = 46.1. PER SCALE, NO CHANGE IN INFUSION RATEM REMAINS AT 1750 UNITS/HR. WILL CONTINUE CLOSE MONITORING
[2018-11-06] MEDS: FOSPHENYTOIN SODIUM PE 100 MG/2 ML VIAL IV SCH (21:26)
[2018-11-06] MEDS: ATORVASTATIN 40 MG TABLET PO SCH (21:26)
--- NOTE | 2018-11-06 23:15 | NUR ---
SENIOR UI WEB DEVELOPER NOTES PATIENT AGAIN RESTLESS/AGITATED, MANIFESTED BY ELEVATED BLOOD PRESSURE, SBP 160s-170s, KICKING AND MOVING EXTREMITIES, COUGHING, BITING ET TUBE. DR HOBBS MADE AWARE, WITH ORDER FOR DILAUDID 0.5MG IV Q4H PRN PAIN. WILL ADMINISTER MEDICATION AND CONTINUE CLOSE MONITORING
[2018-11-06] MEDS: HYDROMORPHONE 1 MG/1 ML DISP.SYRIN IV PRN (23:21)
[2018-11-07] VITALS (43 sets, daily range): BP systolic 112–182; BP diastolic 46–90
--- NOTE | 2018-11-07 00:15 | NUR ---
BRICK SETTER NOTES PATIENT RESTING IN BED, EYES CLOSED, APPEARS COMFORTABLE, SBP 120s-130s. WILL CONTINUE TO CLOSELY MONITOR
[2018-11-07] MEDS: PIPERACILLIN /TAZOBACTAM 3.375 G in IV D5W 50 ML IV SCH ×4 (01:32→20:07)
[2018-11-07] MEDS: BLOOD SUGAR DIAGNOSTIC 1 EACH STRIP IN SCH ×5 (01:33→17:27)
[2018-11-07] MEDS: INSULIN REGULAR, HUMAN 100 UNIT/ML 3 ML VIAL SQ PRN ×5 (01:43→17:26)
[2018-11-07] MEDS: IV D5/0.45 NACL 1,000 ML IV PRN ×3 (01:43→21:35)
[2018-11-07] MEDS: HYDROMORPHONE 1 MG/1 ML DISP.SYRIN IV PRN (03:31)
[2018-11-07] MEDS: ACETAMINOPHEN 650 MG/SUPP.RECT RC PRN (03:31)
[2018-11-07 04:48] LABS: BASOPHILS % (AUTO) 0.2 % (0.0-2.0); EOSINOPHILS % (AUTO) 0.9 % (0.0-6.0); HEMATOCRIT 25 % (33-45); HEMOGLOBIN 8.2 g/dL (11.5-14.8); LYMPHOCYTES % (AUTO) 20.6 % (20.0-44.0); MEAN CORPUSCULAR HGB CONC 33 g/dl (31.0-36.0); MEAN CORPUSCULAR VOLUME 84 fL (82-100); MONOCYTES # (AUTO) 1.3 /CMM (0.1-1.30); NEUTROPHILS # (AUTO) 10.2 /CMM (1.8-8.9); NEUTROPHILS % (AUTO) 69.3 % (43.0-81.0); PLATELET COUNT (AUTO) 254 /CMM (150-450); RED BLOOD CELL COUNT(AUTO) 3.01 MIL/uL (4.0-5.2); WHITE BLOOD COUNT (AUTO) 14.7 K/uL (4.3-11.0)
[2018-11-07] MEDS: LORAZEPAM INJ 2 MG/ML VIAL IV PRN ×2 (04:50→09:15)
[2018-11-07] MEDS: FOSPHENYTOIN SODIUM PE 100 MG/2 ML VIAL IV SCH ×3 (04:54→21:20)
[2018-11-07 04:56] LABS: CALCIUM, SERUM 7.2 mg/dL (8.5-10.1); CREATININE 1.1 mg/dL (0.6-1.3); PHOSPHORUS 6.9 mg/dL (2.5-4.9); POTASSIUM 3.3 mmol/L (3.5-5.1)
[2018-11-07] MEDS: PANTOPRAZOLE 40 MG VIAL IV SCH ×2 (04:56→16:20)
--- NOTE | 2018-11-07 07:00 | NUR ---
LINE SERVER CLOSING NOTES PATIENT RESTING IN BED, APPEARS COMFORTABLE, NO S/S OF RESTLESSNESS AND AGITATION AT THIS TIME. REMAINS ON HEPARIN DRIP @ 1750 UNITS/HR, ORALLY INTUBATED ON MECHANICAL VENTILATOR. CONTINUES WITH COOLING BLANKET. WILL ENDORSE THE PATIENT TO THE AM SHIFT NURSE FOR CONTINUITY OF CARE
--- NOTE | 2018-11-07 07:05 | NUR ---
RN NOTES RECEIVED PATIENT ON BED, OPENS EYES AT TIMES , DOES NOT FOLLOW COMMAND ,ORALLY INTUBATED, TOLERATING CURRENT VENT SETTING WELL, ON TELE SR HR IN 80'S , R NARE NGT TUBE INTACT AND CONNECTED TO LIS , BILATERAL SOFT WRIST RESTRAINTS IN PLACE FOR PT SAFETY , SKIN ASSESSED FOR CIRCULATION. SHREE PICC RUNNING HEPARIN DRIP @ 1750 UNITS/HR, LEFT AND RIGHT HANDS PERIPHERAL IV SITES CLEAN , DRY AND INTACT, SY CATHETER DRAINING TO GRAVITY WITH YELLOW URINE. SR UP x3, BED LOCKED AND IN LOWEST POSITION. CONTINUE TO MONITOR .
[2018-11-07] MEDS: OSELTAMIVIR PHOSPHATE 75 MG CAPSULE PO SCH ×2 (08:33→16:19)
[2018-11-07] MEDS: ASPIRIN 300 MG/SUPP.RECT RC SCH (08:36)
[2018-11-07] MEDS: INSULIN GLARGINE, 100 UNIT/ML CARTRIDGE SQ SCH ×2 (08:39→21:21)
[2018-11-07 08:45] LABS: ABG PCO2 31.8 mmHg (35.0-45.0); ABG PH 7.431 (7.350-7.450); ABG PO2 96.9 mmHg (75.0-100.0); AaDO2 79.6 mmHg; COHb 0.3 % (0.5-1.5); MetHb 0.3 % (0.0-1.5); O2Hb 96.4 % (94.0-97.0); SITE, ABG Right Radial; VENT MODE, BG AC 20 500 30% +5
--- NOTE | 2018-11-07 09:00 | NUR ---
RN NOTES BP 182/90 , DR RUIZ AT THE BEDSIDE, ATENOLOL 25MG ORDERED , CONTINUE TO MONITOR .
--- NOTE | 2018-11-07 09:07 | NUR ---
WOUND CARE CONSULT: PT PRESENTS WITH INTACT DEEP TISSUE INJURY TO SACRUM, PRESENT ON ADMISSION. PT NOTED TO HAVE INTACT BLISTERING WITH EDEMA TO SACRAL/BUTTOCKS AREA. PT ON FIRST STEP [facility]. ALL SKIN PROTECTION AND WOUND CARE RECOMMENDATIONS DISCUSSED WITH NURSING STAFF. WILL SEE PRN. RAYMOND IN AGREEMENT WITH PLAN OF CARE. CURRENT XAVI SCORE IS 12. Addendum: 11/07/18 at 908 by CECY HUYNH Amended: Links added. Addendum: 11/07/18 at 908 by CECY HUYNH SACRAL DTI EXTENDS TO BUTTOCKS.
[2018-11-07] MEDS: ATENOLOL 25 MG TABLET PO SCH (09:14)
--- NOTE | 2018-11-07 10:00 | NUR ---
RN NOTES OLGA MANUFACTURING INDUSTRIAL ENGINEER NOTIFED REGARDING K=3.3,
[2018-11-07] MEDS ORDERED: FUROSEMIDE 20 MG/2 ML VIAL IV ONE (10:30)
--- NOTE | 2018-11-07 11:00 | NUR ---
RN NOTES SUPPORTIVE FAMILY AT THE BEDSIDE AND REQUESTING TO TALK TO OLGA RAYMOND VENEER STOCK GRADER NOTIFED. CONTINUE TO MONITOR .
[2018-11-07] MEDS: HEPARIN INFUSION/D5W 500 ML IV PRN (11:04)
[2018-11-07] MEDS: POTASSIUM CL. PREMIX PERIPHER. 50 ML IV SCH ×2 (12:01→13:49)
--- NOTE | 2018-11-07 14:00 | NUR ---
RN NOTES TRACH SUCTION DONE, CONTINUE TO MONITOR .
[2018-11-07] MEDS: VANCOMYCIN 0.75 GM in IV D5W 250 ML IV SCH (17:23)
--- NOTE | 2018-11-07 17:53 | NUR ---
RT END OF THE SHIFT REPORT; PT REC. 0700 AM SHIFT. PT. IS 68 Y OLD FEMALE ORALLY INTUBATED ETT# 7.0@ 22 CM SECURED AT THE LIP. REMAIN STABLE. PT. TOLERATING VENT SETTINGS. VENT CHANGES BY DR. SARA BORJA SX'D FOR SMALL AMT OF WHITE SECRETIONS. EQUAL CHEST RISE NOTED. CUFF WORK OVER RIG OPERATOR. VENT ALARMS SET AND AUDIBLE. AMBU BAG AT BEDSIDE. VENT PLUGGED INTO RED OUTLET. WILL CONTINUE TO MONITOR. HME CHANGED. REPORT WILL PASS TO PM SHIFT. Addendum: 11/07/18 at 1755 by JUDE MINOR RT Amended: Links added.
--- NOTE | 2018-11-07 18:00 | NUR ---
RN NOTES DR Suki VUONG AT THE BEDSIDE TALKING TO PT'S SISTER AT THE BEDSIDE, REGARDING PLAN OF CARE HEPARIN AT 1750U/HR AND D51/2NS AY 100CC/HR RUNNING VIA L UPPER ARM PICC LINE , NO SIGNIFICANT CHANGES NOTED ON THIS SHIFT , WILL ENDOSE TO GRADE SCHOOL TEACHER NURSER FOR CONTINUITY OF CARE .
--- NOTE | 2018-11-07 20:00 | NUR ---
Received patient eyes open,non verbal not following commands.Intubated to full vent support. Bilateral soft wrist restraints for safety.On continuous cardiac monitoring show SR 70's.A-line Left radial intact zeroed and calibrated.Normotensive.Right nares ngt to LWIS draining brownish Liquid.NPO status with IV hydration infusing.FC to gravity.Heparin gtt infusing at 1750 units/hr. Will monitor PTT as per protocol.No acute distress noted.Turned and repositioned.
--- NOTE | 2018-11-07 20:18 | NUR ---
RECEIVED PT INTUBATED 7.0 SECURED AT 22CM AT THE LIP. PT TOLERATING VENT SETTINGS. SX'D FOR MOD AMT OF THICK GROVER SECRETIONS. VENT ALARMS SET AND AUDIBLE. AMBU BAG AT BEDSIDE. ETT SECURE, CUFF LITIGATOR. VENT PLUGGED INTO RED OUTLET. WILL CONTINUE TO MONITOR. Addendum: 11/07/18 at 2021 by GENESIS MEZA RT Amended: Links added.
[2018-11-07] MEDS: ATORVASTATIN 40 MG TABLET PO SCH (21:21)
[2018-11-08] VITALS (52 sets, daily range): BP systolic 99–156; BP diastolic 46–77
--- NOTE | 2018-11-08 | NUR ---
Patient resting VS stable.AM care done.Turned and repositioned.
[2018-11-08] MEDS: BLOOD SUGAR DIAGNOSTIC 1 EACH STRIP IN SCH ×8 (00:03→23:47)
[2018-11-08] MEDS: INSULIN REGULAR, HUMAN 100 UNIT/ML 3 ML VIAL SQ PRN ×5 (00:04→23:42)
[2018-11-08] MEDS: HEPARIN INFUSION/D5W 500 ML IV PRN (01:26)
[2018-11-08] MEDS: PIPERACILLIN /TAZOBACTAM 3.375 G in IV D5W 50 ML IV SCH ×4 (03:24→20:53)
[2018-11-08] MEDS: VANCOMYCIN 0.75 GM in IV D5W 250 ML IV SCH (04:00)
[2018-11-08] MEDS: PANTOPRAZOLE 40 MG VIAL IV SCH ×2 (04:00→16:43)
[2018-11-08] MEDS: FOSPHENYTOIN SODIUM PE 100 MG/2 ML VIAL IV SCH ×3 (05:01→20:54)
[2018-11-08 05:06] LABS: BASOPHILS % (AUTO) 0.2 % (0.0-2.0); HEMATOCRIT 24 % (33-45); HEMOGLOBIN 7.9 g/dL (11.5-14.8); LYMPHOCYTES # (AUTO) 2.8 /CMM (0.8-4.8); LYMPHOCYTES % (AUTO) 20.1 % (20.0-44.0); MEAN CORPUSCULAR HGB CONC 32 g/dl (31.0-36.0); MEAN CORPUSCULAR VOLUME 84 fL (82-100); MONOCYTES # (AUTO) 1.6 /CMM (0.1-1.30); MONOCYTES % (AUTO) 11.8 % (2.0-12.0); NEUTROPHILS # (AUTO) 9.3 /CMM (1.8-8.9); NEUTROPHILS % (AUTO) 66.9 % (43.0-81.0); PLATELET COUNT (AUTO) 255 /CMM (150-450); RED BLOOD CELL COUNT(AUTO) 2.91 MIL/uL (4.0-5.2); WHITE BLOOD COUNT (AUTO) 13.9 K/uL (4.3-11.0)
[2018-11-08 05:10] LABS: CALCIUM, SERUM 7.3 mg/dL (8.5-10.1); CREATININE 1.7 mg/dL (0.6-1.3); POTASSIUM 3.4 mmol/L (3.5-5.1)
[2018-11-08] MEDS ORDERED: IV NS 0.9% 500 ML IV ONE (05:30)
--- NOTE | 2018-11-08 06:00 | NUR ---
PTT 41.8 Heparin drip rate increased by 150 unit/hr per protocol.Now infusing at 1900 unit/hr.
[2018-11-08] MEDS: IV D5/0.45 NACL 1,000 ML IV PRN (07:10)
--- NOTE | 2018-11-08 07:30 | NUR ---
Patient resting no significant change noted.Endorse to day shift RN for continuity of care.
[2018-11-08] MEDS: OSELTAMIVIR PHOSPHATE 75 MG CAPSULE PO SCH ×2 (08:54→16:42)
[2018-11-08] MEDS ORDERED: ASPIRIN 325 MG TABLET NG SCH (09:00)
[2018-11-08] MEDS: ATENOLOL 25 MG TABLET PO SCH (09:08)
[2018-11-08] MEDS: INSULIN GLARGINE, 100 UNIT/ML CARTRIDGE SQ SCH ×2 (09:14→21:35)
[2018-11-08 09:39] LABS: ABG BASE EXCESS -3.7 mmol/L; ABG OXYGEN SATURATION 96.9 % (92.0-98.5); ABG PCO2 24.5 mmHg (35.0-45.0); ABG PH 7.497 (7.350-7.450); ABG PO2 102.6 mmHg (75.0-100.0); AaDO2 82.5 mmHg; COHb 0.1 % (0.5-1.5); MetHb 0.6 % (0.0-1.5); O2Hb 96.2 % (94.0-97.0); PEEP,BG 5 cm H2O; SITE, ABG Right Radial; VT, ABG 500 mL
--- NOTE | 2018-11-08 09:46 | NUR ---
vent changes made below per Dr. moreno: Vt 450 Addendum: 11/08/18 at 0947 by RUFUS JOHNSON RT Amended: Links added.
[2018-11-08] MEDS ORDERED: DEXTROSE 50%-WATER 50 ML DISP.SYRIN IV PRN (11:00)
[2018-11-08] MEDS: FUROSEMIDE 40 MG/4 ML VIAL IV SCH ×2 (11:07→16:42)
[2018-11-08] MEDS: POTASSIUM CL. PREMIX PERIPHER. 50 ML IV SCH ×2 (11:07→12:26)
[2018-11-08] MEDS: HYDROMORPHONE 1 MG/1 ML DISP.SYRIN IV PRN (19:11)
--- NOTE | 2018-11-08 20:00 | NUR ---
RN INITIAL NOTES RECEIVED PATIENT ON BED, OPENS EYES AND BITTING ON TUBES AT TIMES,ORALLY INTUBATED, TOLERATING CURRENT VENT SETTING WELL, ON TELE SR HR IN 80'S , R NARE NGT TUBE INTACT AND CONNECTED TO LIPS , BILATERAL SOFT WRIST RESTRAINTS IN PLACE FOR PT SAFETY , SKIN ASSESSED FOR CIRCULATION. SHREE PICC INFUSING 0.9NS TKO,R UA MIDLINE, LEFT AND RIGHT HANDS PERIPHERAL IV SITES CLEAN, R AC PERIPHERAL, SY CATHETER DRAINING TO GRAVITY WITH YELLOW URINE. SR UP x3, BED LOCKED AND IN LOWEST POSITION. WILL CONTINUE TO MONITOR .
--- NOTE | 2018-11-08 21:00 | NUR ---
RN NOTES ABRASION NOTED ON PTS SACRUM AREA, PICS TAKEN.
[2018-11-08] MEDS: ATORVASTATIN 40 MG TABLET PO SCH (21:01)
[2018-11-09] VITALS (43 sets, daily range): BP systolic 93–169; BP diastolic 50–85
[2018-11-09] MEDS: LORAZEPAM INJ 2 MG/ML VIAL IV PRN ×2 (00:08→09:41)
[2018-11-09] MEDS: PIPERACILLIN /TAZOBACTAM 3.375 G in IV D5W 50 ML IV SCH ×4 (01:34→20:41)
[2018-11-09] MEDS: HYDROMORPHONE 1 MG/1 ML DISP.SYRIN IV PRN (02:48)
[2018-11-09 04:42] LABS: BASOPHILS % (AUTO) 0.2 % (0.0-2.0); EOSINOPHILS % (AUTO) 0.9 % (0.0-6.0); HEMATOCRIT 25 % (33-45); LYMPHOCYTES # (AUTO) 1.7 /CMM (0.8-4.8); LYMPHOCYTES % (AUTO) 9.5 % (20.0-44.0); MEAN CORPUSCULAR HGB CONC 32 g/dl (31.0-36.0); MEAN CORPUSCULAR VOLUME 84 fL (82-100); MONOCYTES # (AUTO) 1.9 /CMM (0.1-1.30); MONOCYTES % (AUTO) 10.6 % (2.0-12.0); NEUTROPHILS # (AUTO) 14.2 /CMM (1.8-8.9); NEUTROPHILS % (AUTO) 78.8 % (43.0-81.0); PLATELET COUNT (AUTO) 253 /CMM (150-450); RED BLOOD CELL COUNT(AUTO) 2.98 MIL/uL (4.0-5.2)
[2018-11-09 05:12] LABS: BAND % (MANUAL) 1 % (0.0-5.0); LYMPHOCYTES % (MANUAL) 14 % (16-48); MONOCYTES % (MANUAL) 7 % (0-11.0); NEUTROPHILS % (MANUAL) 78 (42-76)
[2018-11-09 05:18] LABS: CALCIUM, SERUM 7.4 mg/dL (8.5-10.1); CREATININE 1.8 mg/dL (0.6-1.3); POTASSIUM 3.4 mmol/L (3.5-5.1)
[2018-11-09] MEDS: PANTOPRAZOLE 40 MG VIAL IV SCH ×2 (05:25→18:00)
[2018-11-09] MEDS: INSULIN REGULAR, HUMAN 100 UNIT/ML 3 ML VIAL SQ PRN (05:36)
[2018-11-09] MEDS: FOSPHENYTOIN SODIUM PE 100 MG/2 ML VIAL IV SCH ×3 (05:39→21:01)
[2018-11-09] MEDS: BLOOD SUGAR DIAGNOSTIC 1 EACH STRIP IN SCH ×4 (05:44→12:13)
[2018-11-09 08:52] LABS: ABG BASE EXCESS -5.1 mmol/L; ABG OXYGEN SATURATION 95.9 % (92.0-98.5); ABG PH 7.403 (7.350-7.450); ABG PO2 93.2 mmHg (75.0-100.0); AaDO2 84.3 mmHg; COHb 0.3 % (0.5-1.5); MetHb 0.6 % (0.0-1.5); SITE, ABG Right Radial; VENT MODE, BG AC 14 450 +5 30%
[2018-11-09] MEDS: ATENOLOL 25 MG TABLET PO SCH (09:23)
[2018-11-09] MEDS: ASPIRIN 81 MG TAB.CHEW NG SCH (09:24)
[2018-11-09] MEDS: OSELTAMIVIR PHOSPHATE 75 MG CAPSULE PO SCH ×2 (09:24→17:55)
[2018-11-09] MEDS: INSULIN GLARGINE, 100 UNIT/ML CARTRIDGE SQ SCH ×3 (09:39→21:46)
--- NOTE | 2018-11-09 10:41 | NUR ---
RT NOTE: BITE BLOCK PLACED AND ETT SECURED AT 22CM MID LIP LINE.
[2018-11-09] MEDS ORDERED: POTASSIUM CL. PREMIX PERIPHER. 50 ML IV SCH (10:55)
--- NOTE | 2018-11-09 19:52 | NUR ---
ADJUSTER PIANO ACTION. INITIAL ASSESSMENT. RECEIVED THE PT REST ON THE BED. ORALLY INTUBATED. PT IS OBTUNDED. DOES NOT FOLLOW COMMANDS. ETT #7,AC 14,TV 450, FIO2 30%, PEEP 5. SAT 98%. NO ACUTE DISTRESS NOTED. KALSOMINER SHOWING NSR. IV RT UPPER ARM PICC LINE LT UPPER ARM MID LINE TKO RUNNING. RT NARE NGT LOW INTERMITTENT SUCTION. FC PATENT. URINE DRAINING. FITO SOFT WRIST RESTRAINT CHECKED AND RELEASED, NO INJURY OR REDNESS NOTED, A LINE 0 CALIBRATED. WILL CONTINUE TO MONITOR VITALS.
[2018-11-09] MEDS: ATORVASTATIN 40 MG TABLET PO SCH (21:38)
[2018-11-10] VITALS (55 sets, daily range): BP systolic 52–201; BP diastolic 28–121
[2018-11-10] MEDS: BLOOD SUGAR DIAGNOSTIC 1 EACH STRIP IN SCH ×5 (00:21→17:24)
[2018-11-10] MEDS: PIPERACILLIN /TAZOBACTAM 3.375 G in IV D5W 50 ML IV SCH ×4 (01:35→20:20)
--- NOTE | 2018-11-10 03:35 | NUR ---
GRINDER OPERATOR SURFACE TOOL. AM CARE, ORAL CARE, BED BATH GIVEN. LINEN CHANGED. REMAINING SAME VENT SETTING TOLERATED WELL. SAT 98%.O ACUTE DISTRESS NOTED. AUTOMOTIVE PARTS PERSON SHOWING NSR, IV RT UPPER ARM MID LINE. TKO RUNNING. DERECK INTACT. GOOD WAVE FORM NOTED. FC PATENT. URINE DRAINING. FITO SOFT WRIST RESTRAINT CHECKED AND RELEASED. NO INJURY ORB REDNESS NOTED.
--- NOTE | 2018-11-10 03:38 | NUR ---
HEEL GOUGER. AM CARE, ORAL CARE, BED BATH GIVEN. LINEN CHANGED, REMAINING SAME VENT SETTING TOLERATED WELL. SAT 98%, NO ACUTE DISTRESS NOTED. MILL BEAM FITTER SHOWING NSR. IV RT UPPER ARM MID LINE TKO RUNNING. FC PATENT URINE DRAINING, FITO SOFT WRIST RESTRAINT CHECKED AND RELEASED. NO INJURY OR REDNESS NOTED. HOB ELEVATED. RT NARE NGT LOW INTERMITTENT SUCTION. AFEBRILE. WILL CONTINUE TO MONITOR VITALS.
[2018-11-10 04:53] LABS: CALCIUM, SERUM 7.6 mg/dL (8.5-10.1); CREATININE 1.6 mg/dL (0.6-1.3); POTASSIUM 3.1 mmol/L (3.5-5.1)
[2018-11-10] MEDS: PANTOPRAZOLE 40 MG VIAL IV SCH ×2 (04:53→16:58)
[2018-11-10] MEDS: FOSPHENYTOIN SODIUM PE 100 MG/2 ML VIAL IV SCH ×3 (04:53→22:00)
[2018-11-10 07:40] LABS: BASOPHILS # (AUTO) 0.1 /CMM (0.0-0.2); BASOPHILS % (AUTO) 0.4 % (0.0-2.0); EOSINOPHILS % (AUTO) 1.4 % (0.0-6.0); HEMATOCRIT 24 % (33-45); HEMOGLOBIN 7.7 g/dL (11.5-14.8); LYMPHOCYTES # (AUTO) 1.1 /CMM (0.8-4.8); MEAN CORPUSCULAR HGB CONC 32 g/dl (31.0-36.0); MEAN CORPUSCULAR VOLUME 84 fL (82-100); MONOCYTES # (AUTO) 1.9 /CMM (0.1-1.30); MONOCYTES % (AUTO) 11.5 % (2.0-12.0); NEUTROPHILS % (AUTO) 79.7 % (43.0-81.0); PLATELET COUNT (AUTO) 258 /CMM (150-450); RED BLOOD CELL COUNT(AUTO) 2.87 MIL/uL (4.0-5.2); WHITE BLOOD COUNT (AUTO) 16.3 K/uL (4.3-11.0)
[2018-11-10 08:25] LABS: ABG BASE EXCESS -2.6 mmol/L; ABG OXYGEN SATURATION 96.9 % (92.0-98.5); ABG PCO2 29.3 mmHg (35.0-45.0); ABG PH 7.464 (7.350-7.450); AaDO2 77.5 mmHg; COHb 0.4 % (0.5-1.5); MetHb 0.6 % (0.0-1.5); O2Hb 95.9 % (94.0-97.0); PEEP,BG 5 cm H2O; SITE, ABG Right Radial; VT, ABG 450 mL
[2018-11-10] MEDS ORDERED: POTASSIUM CL. PREMIX PERIPHER. 50 ML IV SCH (08:30)
[2018-11-10] MEDS: ATENOLOL 25 MG TABLET PO SCH (08:54)
[2018-11-10] MEDS: ASPIRIN 81 MG TAB.CHEW NG SCH (08:54)
[2018-11-10] MEDS: OSELTAMIVIR PHOSPHATE 75 MG CAPSULE PO SCH (08:54)
[2018-11-10] MEDS: INSULIN GLARGINE, 100 UNIT/ML CARTRIDGE SQ SCH (08:56)
[2018-11-10] MEDS: INSULIN REGULAR, HUMAN 100 UNIT/ML 3 ML VIAL SQ PRN (11:30)
--- NOTE | 2018-11-10 19:52 | NUR ---
AGRICULTURE MECHANIC. INITIAL ASSESSMENT. RECEIVED THE PT REST ON THE BED. ORALLY INTUBATED. PT IS RESPONDING PAIN AND TOUCH. DOES NOT FOLLOW COMMANDS. ETT #7,AC 14, LIP 22TV 450, FIO2 30%, PEEP 5. SAT 98%. NO ACUTE DISTRESS NOTED. WILDLIFE OFFICER SHOWING NSR. IV RT UPPER ARM MID LINE, ,LT UPPER ARM PICC LINE. TKO RUNNING. HOB ELEVATED. RT NARE NGT LOW INTERMITTENT SUCTION. FC PATENT. URINE DRAINING. FITO SOFT WRIST RESTRAINT CHECKED AND RELEASED. NO INJURY OR REDNESS NOTED. WILL CONTINUE TO MONITOR VITALS.
--- NOTE | 2018-11-10 20:24 | NUR ---
PT RCVD ORALLY INTUBATED 7.0 ETT 24CM @ LIP ON MECHANICAL VENT WITH CHARTED SETTINGS. SX DONE. ET TUBE IS PATENT AND SECURE. VENT PLUGGED INTO RED OUTLET. ALARMS ARE SET AND AUDIBLE. ELSA JI AT BEDSIDE. WILL CONTINUE TO MONITOR. Addendum: 11/10/18 at 2027 by BARRIE SIGALA RT Amended: Links added. Addendum: 11/10/18 at 2348 by BARRIE SIGALA RT CORRECT INFORMATION 7.0 ETT 22CM @ LIP.
[2018-11-10] MEDS: ATORVASTATIN 40 MG TABLET PO SCH (21:59)
[2018-11-10] MEDS: CARVEDILOL 6.25 MG TABLET PO SCH (22:00)
[2018-11-11] VITALS (43 sets, daily range): BP systolic 100–171; BP diastolic 46–125
[2018-11-11] MEDS: BLOOD SUGAR DIAGNOSTIC 1 EACH STRIP IN SCH ×4 (00:50→17:03)
[2018-11-11] MEDS: PIPERACILLIN /TAZOBACTAM 3.375 G in IV D5W 50 ML IV SCH ×3 (00:52→13:45)
[2018-11-11] MEDS: INSULIN GLARGINE, 100 UNIT/ML CARTRIDGE SQ SCH ×3 (00:55→22:39)
[2018-11-11 05:02] LABS: CALCIUM, SERUM 7.6 mg/dL (8.5-10.1); CREATININE 1.3 mg/dL (0.6-1.3); POTASSIUM 2.9 mmol/L (3.5-5.1)
[2018-11-11 05:20] LABS: BASOPHILS # (AUTO) 0.1 /CMM (0.0-0.2); BASOPHILS % (AUTO) 0.3 % (0.0-2.0); EOSINOPHILS % (AUTO) 2.8 % (0.0-6.0); HEMATOCRIT 24 % (33-45); HEMOGLOBIN 7.6 g/dL (11.5-14.8); LYMPHOCYTES % (AUTO) 6.5 % (20.0-44.0); MEAN CORPUSCULAR HGB CONC 32 g/dl (31.0-36.0); MEAN CORPUSCULAR VOLUME 84 fL (82-100); MONOCYTES % (AUTO) 13.1 % (2.0-12.0); NEUTROPHILS % (AUTO) 77.3 % (43.0-81.0); PLATELET COUNT (AUTO) 307 /CMM (150-450); WHITE BLOOD COUNT (AUTO) 15.5 K/uL (4.3-11.0)
--- NOTE | 2018-11-11 05:21 | NUR ---
multicultural services librarian. am care, oral care, bed bath given. linen changed. remaining same vent setting tolerated well. sat 99%. no acute distress noted. cardiac rehabilitation program director showing nsr. iv rt upper arm mid line saline lock. hob elevated. fc patent. urine draining. mert aofr wrist restraint checked and released. no injury or redness noted. ngt low intermittent suction. turn and reposition q2h. will continue to monitor vitals.
[2018-11-11] MEDS: FOSPHENYTOIN SODIUM PE 100 MG/2 ML VIAL IV SCH ×3 (05:52→21:33)
[2018-11-11] MEDS: PANTOPRAZOLE 40 MG VIAL IV SCH ×2 (05:52→16:53)
--- NOTE | 2018-11-11 07:36 | NUR ---
CURBER OPENING NOTES RECEIVED PT FROM NIGHTSHIFT RN IN STABLE CONDITION. PT RESPONSIVE TO PAINFUL STIMULI HOWEVER UNABLE TO FOLLOW COMMANDS. ETT NOTED. PT TOLERATING VENT SETTING WELL ORDERED. (ETT 05/21 AC 14, TV 450, FI02 30%, PEEP 5). NG TUBE NOTED TO BE PATENT AND INTACT. PLACEMENT VERIFIED VIA AUSCULTATION. RIGHT UPPER ARM MIDLINE ALONG WITH LEFT UPPER ARM PICC NOTED TO BE PATENT AND INTACT. NO REDNESS OR SIGNS OF DISTRESS NOTED. BED IN LOW LOCKED POSITION, SIDE RAILS UP X3, CALL LIGHT WITHIN REACH, ISOLATION PRECAUTIONS MAINTAINED AT THIS TIME . WILL CONTINUE TO MONITOR
[2018-11-11 08:02] LABS: MAGNESIUM 1.8 mg/dL (1.8-2.4); PHOSPHORUS 2.5 mg/dL (2.5-4.9)
[2018-11-11] MEDS: POTASSIUM CHLORIDE 20 MEQ POWDER PACKET NG SCH ×4 (09:00→13:44)
[2018-11-11] MEDS: CARVEDILOL 6.25 MG TABLET PO SCH ×2 (09:06→21:28)
[2018-11-11] MEDS: ASPIRIN 81 MG TAB.CHEW NG SCH (09:06)
[2018-11-11] MEDS: FUROSEMIDE 40 MG/4 ML VIAL IV SCH ×3 (13:47→21:33)
--- NOTE | 2018-11-11 14:05 | NUR ---
FOR CT, PT JUST BEEN ADMINISTERED MEDS, RN WILL CALL BACK LATER WHEN RT AVAILABLE
--- NOTE | 2018-11-11 16:20 | NUR ---
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 Per CORRUGATED SHEET MATERIAL SHEETER, "I will talk to Dr Shepherd regarding the CT."
[2018-11-11] MEDS ORDERED: GLUCERNA 1.2 1,000 ML BOTTLE NG PRN (16:30)
--- NOTE | 2018-11-11 17:15 | NUR ---
ICU/RN: Sigifredo Manzo at bedside, discussing CT head results, treatment options with pt sister.
--- NOTE | 2018-11-11 18:02 | NUR ---
RT END OF THE SHIFT REPORT; PT REC. 0700 AM SHIFT. PT. IS 68 Y OLD FEMALE ORALLY INTUBATED ETT# 7.0@ 22 CM SECURED AT THE LIP. REMAIN STABLE. NOT SEDATED PT. TOLERATING VENT SETTINGS. SUX'D FOR SMALL AMT OF WHITE SECRETIONS. EQUAL CHEST RISE NOTED. CUFF PRODUCT MANAGER E [employer]. VENT ALARMS SET AND AUDIBLE. AMBU BAG AT BEDSIDE. VENT PLUGGED INTO RED OUTLET. WILL CONTINUE TO MONITOR. HME CHANGED. REPORT WILL PASS TO PM SHIFT. Addendum: 11/11/18 at 1804 by JUDE MINOR RT Amended: Links added.
[2018-11-11] MEDS: GLUCERNA 1.2 1,000 ML BOTTLE NG PRN (19:23)
--- NOTE | 2018-11-11 19:29 | NUR ---
PT RCVD ORALlY INTUBATED 7.0 ETT 22CM @ LIP ON MECHANICAL VENT WITH CHARTED SETTINGS. SX'D SMALL AMOUNT OF WHITE SECRETIONS. ET TUBE IS PATENT AND SECURE. VENT PLUGGED INTO RED OUTLET. ALARMS ARE SET AND AUDIBLE. AMBU BAG AT BEDSIDE. WILL CONTINUE TO MONITOR. Addendum: 11/11/18 at 1929 by BARRIE SIGALA RT Amended: Links added.
--- NOTE | 2018-11-11 19:45 | NUR ---
ICU/PRODUCTION DESIGNER RECEIVED REPORT FROM DAY NURSE. SEE FLOWSHEET FOR ASSESSMENT AND SKIN ISSUES WHICH ARE ALSO ADDRESSED ON FLOWSHEET ALONG WITH INTERVENTIONS. PT WAS TURNED AND REPOSITIONED FOR COMFORT CARE. WILL CONTINUE TO MONITOR THIS PT.
--- NOTE | 2018-11-11 20:20 | NUR ---
ICU/MACHINE SHOP SPECIALIST CATTLE DEHORNER CALLED TO ASK IF THE PT IS ON 81MG ASPIRIN DUE TO THE RECENT CT FINDING OF AN ACUTE ISCHEMIA STROKE ON 11/11/18. PT HAS BEEN ON ASPIRIN FOR THE FAST FEW DAYS. NO NEW ORDERS WERE RECEIVED.
[2018-11-11] MEDS: ATORVASTATIN 40 MG TABLET PO SCH (21:28)
[2018-11-11] MEDS: HEPARIN SODIUM, PORCINE 5000 UNITS/1 ML VIAL SQ SCH (21:29)
--- NOTE | 2018-11-11 23:00 | NUR ---
ICU/BELLHOP SERVICE CAPTAIN PT WAS GIVEN PM CARE, ALONG WITH ORAL CARE. PT REMAINS ON CURRENT VENT SETTINGS WITH SATURATION AT 98-100%. PT WAS TURNED AND REPOSITIONED FOR COMFORT AND CARE. WILL CONTINUE TO MONITOR THIS PT. PT APPEARS TO BE RESTING COMFORTABLY, NO ACUTE DISTRESS SEEN AT THIS TIME.
[2018-11-12] VITALS (54 sets, daily range): BP systolic 118–180; BP diastolic 33–128
[2018-11-12] MEDS: BLOOD SUGAR DIAGNOSTIC 1 EACH STRIP IN SCH ×5 (00:08→23:11)
[2018-11-12] MEDS: INSULIN REGULAR, HUMAN 100 UNIT/ML 3 ML VIAL SQ PRN ×5 (00:09→23:14)
--- NOTE | 2018-11-12 00:20 | NUR ---
ICU/OCEANOGRAPHER GEOLOGICAL PT'S MIDNIGHT BLOOD SUGAR WAS 131, THIS WAS COVERED WITH 2 UNITS REGULAR INSULIN. WILL CONTINUE TO MONITOR THE PT'S SUGAR ORDERED FROM .
[2018-11-12] MEDS ORDERED: FUROSEMIDE 20 MG/2 ML VIAL ONE (01:34)
[2018-11-12] MEDS: FUROSEMIDE 40 MG/4 ML VIAL IV SCH ×5 (01:38→19:57)
--- NOTE | 2018-11-12 01:49 | NUR ---
ICU/EMERGENCY SERVICE RESTORER PT HAS SCHEDULE MEDICATION OF LASIX 20MG IVP, CHARGE NURSE OVERRODE THIS DUE TO IT WAS NOT ACCESSIBLE A SCHEDULE MEDICATION ON DEC. THIS IS WHY IT APPEARS SCHEDULE AND OVERRIDE IN DEC.
--- NOTE | 2018-11-12 03:50 | NUR ---
ICU/INDEPENDENT AGENT MUSIC EDUCATION PT WAS GIVEN AM CARE, ALONG WITH ORAL CARE. PT REMAINS ON CURRENT VENT SETTINGS WITH SATURATION AT 98-100%. PT WAS TURNED AND REPOSITIONED FOR COMFORT AND CARE. WILL CONTINUE TO MONITOR THIS PT. PT APPEARS TO BE RESTING COMFORTABLY, NO ACUTE DISTRESS SEEN AT THIS TIME. PT HAS HAD POSITIVE RESULTS FROM LASIX GIVEN THROUGHOUT THE SHIFT.
[2018-11-12 05:23] LABS: BASOPHILS # (AUTO) 0.1 /CMM (0.0-0.2); BASOPHILS % (AUTO) 0.5 % (0.0-2.0); EOSINOPHILS % (AUTO) 3.4 % (0.0-6.0); HEMATOCRIT 25 % (33-45); LYMPHOCYTES # (AUTO) 1.2 /CMM (0.8-4.8); LYMPHOCYTES % (AUTO) 8.7 % (20.0-44.0); MEAN CORPUSCULAR HGB CONC 32 g/dl (31.0-36.0); MEAN CORPUSCULAR VOLUME 84 fL (82-100); MONOCYTES # (AUTO) 1.9 /CMM (0.1-1.30); MONOCYTES % (AUTO) 14.1 % (2.0-12.0); NEUTROPHILS % (AUTO) 73.3 % (43.0-81.0); PLATELET COUNT (AUTO) 369 /CMM (150-450); RED BLOOD CELL COUNT(AUTO) 2.96 MIL/uL (4.0-5.2); WHITE BLOOD COUNT (AUTO) 13.6 K/uL (4.3-11.0)
[2018-11-12 05:25] LABS: ALBUMIN 1.9 g/dL (3.4-5.0); BILIRUBIN,TOTAL 0.4 mg/dL (0.2-1.0); CREATININE 1.2 mg/dL (0.6-1.3); MAGNESIUM 1.5 mg/dL (1.8-2.4); PHOSPHORUS 2.7 mg/dL (2.5-4.9); POTASSIUM 3.2 mmol/L (3.5-5.1); TOTAL PROTEIN, SERUM 5.8 g/dL (6.4-8.2)
[2018-11-12] MEDS: FOSPHENYTOIN SODIUM PE 100 MG/2 ML VIAL IV SCH ×3 (05:25→20:02)
[2018-11-12] MEDS: PANTOPRAZOLE 40 MG VIAL IV SCH ×2 (05:25→17:11)
--- NOTE | 2018-11-12 07:33 | NUR ---
INITIAL ACCOUNT UNDERWRITER NOTE RCVD PT WITH EYES OPEN, WONDERING EYES, NOT FOLLOWING COMMANDS, RESTLESS KICKING WITH LEGS AND MOVING ARMS UP AND DOWN, INTUBATED APPEARS TO BE TOLERATING VENT SETTINGS WELL. ORACLE HYPERION CONSULTANT RESTRAINTS IN PLACE, CIRCULATION CHECKS DONE. SR ON MONITOR. NG-TUBE PLACEMENT VERIFIED BY AUSCULTATION/ASPIRATION, LOW RESIDUAL OBTAINED. SY TO GRAVITY DRAINING CLOUDY, YELLOW URINE. EMILIA MIDLINE C/D/I/PATENT, SHREE PICC ONLY ONE PORT FLUSHING WELL. TUBE FEEDING STARTED YESTERDAY INCREASED BY 10 ML THIS AM WILL CONTINUE TO MONITOR TOLERANCE. BED IN LOW AND LOCKED POSITION. CALL LIGHT WITHIN REACH. HEAD OF BED ELEVATED AT 30 DEGREES.
--- NOTE | 2018-11-12 08:26 | NUR ---
RT PATIENT REC'D ORALLY [facility]UBUTED [facility] WITH ORDERED SETTINGS REJI WELL. VENT ALARMS CHECKED + AUDIBLE. VENT PLUGGED INTO RED OUTLET. PATIENT AWAKE, NON VERBAL, NON RESPONSIVE TO COMMANDS, NO SO NOTED. AIRWAY SUCTIONED AND PATENT. SMALL/MOD AMT OF PALE SEMITHICK SECRETIONS. B/S DIM. AMBU BAG AT [facility]. PER MD ORDERS PATIENT PLACED ON SIMV WEANING MODE REJI WELL. Addendum: 11/12/18 at 2016 by SUZE FIORE RT Amended: Links added.
[2018-11-12] MEDS: CARVEDILOL 6.25 MG TABLET PO SCH ×2 (09:00→21:06)
[2018-11-12 09:23] LABS: ABG BASE EXCESS 5.2 mmol/L; ABG OXYGEN SATURATION 97.2 % (92.0-98.5); ABG PCO2 34.3 mmHg (35.0-45.0); ABG PH 7.531 (7.350-7.450); ABG PO2 100.5 mmHg (75.0-100.0); AaDO2 73.1 mmHg; COHb 0.9 % (0.5-1.5); MetHb 0.5 % (0.0-1.5); O2Hb 95.8 % (94.0-97.0); PEEP,BG 5 cm H2O; SITE, ABG Right Femoral; VT, ABG 450 mL
--- NOTE | 2018-11-12 09:27 | NUR ---
COLOR RECEIVER NOTE OLGA, PEANUT FARMER IN UNIT UPDATED REGARDING PT'S CONDITION RECOMMENDED TO TREAT SBP IF >150. BP MEDS THIS AM HELD WILL CONTINUE TO MONITOR.
[2018-11-12] MEDS: POTASSIUM CHLORIDE 20 MEQ POWDER PACKET GT SCH ×4 (09:55→12:08)
[2018-11-12] MEDS: Magnesium 1GM/D5W 100ML PREMIX 100 ML IV SCH ×2 (09:55→11:19)
[2018-11-12] MEDS: HEPARIN SODIUM, PORCINE 5000 UNITS/1 ML VIAL SQ SCH ×2 (09:56→21:11)
[2018-11-12] MEDS: ASPIRIN 81 MG TAB.CHEW NG SCH (09:58)
[2018-11-12] MEDS: INSULIN GLARGINE, 100 UNIT/ML CARTRIDGE SQ SCH ×2 (10:17→21:10)
--- NOTE | 2018-11-12 18:47 | NUR ---
PRESIDENT CEO & FOUNDER NOTE PT REMAINS RESTLESS, AND UNABLE TO FOLLOW COMMANDS. SR ON MONITOR TOLERATING SIMV MODE SINCE 0800, NO SIGNS OF DISTRESS OBSERVED. RESTRAINS IN PLACE CIRCULATIONS CHECKS DONE. NG-TUBE PLACEMENT VERIFIED BY AUSCULTATION OF GASTRIC CONTENTS, TOLERATING TUBE FEEDING WELL. SY TO GRAVITY DRAINING YELLOW URINE. IV SITES REMAIN THE SAME. PT'S CARE WILL BE ENDORSED TO FURNITURE RENTAL CONSULTANT RN FOR CONTINUITY OF CARE. BED IN LOW AND LOCKED POSITION. CALL LIGHT WITHIN REACH. HEAD OF BED ELEVATED AT 30 DEGREES.
--- NOTE | 2018-11-12 19:30 | NUR ---
CORE WINDER INITIAL SHIFT NOTES RECEIVED REPORT FROM DAY SHIFT NURSE. PATIENT IN BED, AWAKE, ALERT, OPENS EYES BUT DISORIENTED, UNABLE TO FOLLOW COMMANDS. PATIENT ORALLY INTUBATED, ON MECHANICAL VENTILATOR AT PRESCRIBED RATE, TOLERATING WELL, NO S/S OF RESPIRATORY DISTRESS NOTED. BEDSIDE TELEMETRY MONITORING SHOWS SINUS RHYTHM WITH OCCASIONAL PVCs, HR = 80 BPM. RIGHT NARE NGT PATENT AND INTACT, FLUSHED WITH WATER, APPROXIMATELY 20 ML OF STRAW COLORED GASTRIC RESIDUALS. SY CATHETER DRAINING CLOUDY YELLOW URINE WITH SEDIMENTS. HOB KEPT ELEVATED IN SEMI FOWLERS POSITION FR ASPIRATION PRECAUTIONS, CALL LIGHT WITHIN EASY REACH. BED IN LOWEST AND LOCKED POSITION. WILL CONTINUE TO CLOSELY MONITOR
--- NOTE | 2018-11-12 19:35 | NUR ---
LOCKSTITCH MACHINE OPERATOR NOTES ALL PORTS ON SHREE PICC FLUSHED WITH NS, NOTED WITH GOOD VENOUS RETURN
[2018-11-12] MEDS: ATORVASTATIN 40 MG TABLET PO SCH (21:06)
[2018-11-13] VITALS (56 sets, daily range): BP systolic 119–163; BP diastolic 23–98
--- NOTE | 2018-11-13 | NUR ---
BALLAST CLEANING OPERATOR NOTES BED BATH RENDERED. WOUND CARE PERFORMED PRESCRIBED. PATIENT TOLERATED WELL.
[2018-11-13 04:32] LABS: BASOPHILS # (AUTO) 0.1 /CMM (0.0-0.2); BASOPHILS % (AUTO) 0.5 % (0.0-2.0); EOSINOPHILS % (AUTO) 3.8 % (0.0-6.0); HEMATOCRIT 24 % (33-45); HEMOGLOBIN 7.8 g/dL (11.5-14.8); LYMPHOCYTES # (AUTO) 1.7 /CMM (0.8-4.8); LYMPHOCYTES % (AUTO) 12.2 % (20.0-44.0); MEAN CORPUSCULAR HGB CONC 32 g/dl (31.0-36.0); MEAN CORPUSCULAR VOLUME 83 fL (82-100); MONOCYTES # (AUTO) 1.8 /CMM (0.1-1.30); MONOCYTES % (AUTO) 12.9 % (2.0-12.0); NEUTROPHILS # (AUTO) 9.9 /CMM (1.8-8.9); NEUTROPHILS % (AUTO) 70.6 % (43.0-81.0); PLATELET COUNT (AUTO) 463 /CMM (150-450); RED BLOOD CELL COUNT(AUTO) 2.93 MIL/uL (4.0-5.2); WHITE BLOOD COUNT (AUTO) 14.1 K/uL (4.3-11.0)
[2018-11-13 04:48] LABS: ALBUMIN 2.1 g/dL (3.4-5.0); BILIRUBIN,TOTAL 0.3 mg/dL (0.2-1.0); CALCIUM, SERUM 8.4 mg/dL (8.5-10.1); CREATININE 1.1 mg/dL (0.6-1.3); MAGNESIUM 1.6 mg/dL (1.8-2.4); PHOSPHORUS 3.3 mg/dL (2.5-4.9); TOTAL PROTEIN, SERUM 6.2 g/dL (6.4-8.2)
[2018-11-13] MEDS: PANTOPRAZOLE 40 MG VIAL IV SCH ×2 (04:48→16:34)
[2018-11-13] MEDS: FOSPHENYTOIN SODIUM PE 100 MG/2 ML VIAL IV SCH ×3 (05:21→20:07)
[2018-11-13] MEDS: BLOOD SUGAR DIAGNOSTIC 1 EACH STRIP IN SCH ×3 (05:21→17:32)
[2018-11-13] MEDS: INSULIN REGULAR, HUMAN 100 UNIT/ML 3 ML VIAL SQ PRN ×3 (05:23→17:33)
[2018-11-13] MEDS: ACETAMINOPHEN 650 MG/20.3 ML UDC NG PRN (06:35)
--- NOTE | 2018-11-13 06:40 | NUR ---
DIRECT RESPONSE CONSULTANT NOTES PATIENT NOTED WITH FACIAL GRIMACE, REPOSITIONED FOR COMFORT, TYLENOL ADMINISTERED VIA NGT. WILL CONTINUE TO MONITOR CLOSELY
--- NOTE | 2018-11-13 08:39 | NUR ---
WOUND CARE CONSULT: PT PRESENTS WITH SACRAL DEEP TISSUE INJURY EXTENDING TO BUTTOCKS, PRESENT ON ADMISSION NOW IN EVOLUTION WITH OPEN AREAS. RED RASH NOTED TO PERINEUM AND GROIN AREAS. RECOMMENDATIONS MADE FOR SKIN PROTECTION AND WOUND CARE. DISCUSSED WITH NURSING STAFF. PT INCONTINENT OF LOOSE STOOL. PT MOVES LOWER EXTREMITIES ALMOST CONSTANTLY. WILL SEE PRN. RAYMOND IN AGREEMENT WITH PLAN OF CARE. Addendum: 11/13/18 at 0842 by CECY HOOK WNDNU Amended: Links added.
[2018-11-13] MEDS ORDERED: HYDROGEL DRESSING 90 GM TUBE TP PRN (09:00)
[2018-11-13] MEDS: CARVEDILOL 6.25 MG TABLET PO SCH ×2 (09:00→20:08)
[2018-11-13] MEDS: GLUCERNA 1.2 1,000 ML BOTTLE NG PRN (09:12)
[2018-11-13] MEDS: ASPIRIN 81 MG TAB.CHEW NG SCH (09:12)
[2018-11-13] MEDS: HEPARIN SODIUM, PORCINE 5000 UNITS/1 ML VIAL SQ SCH ×2 (09:12→20:10)
[2018-11-13] MEDS: INSULIN GLARGINE, 100 UNIT/ML CARTRIDGE SQ SCH ×2 (09:13→22:28)
--- NOTE | 2018-11-13 09:41 | NUR ---
SECURITY INCIDENT HANDLER NOTE RCVD PT RESTLESS, UNABLE TO FOLLOW COMMANDS, TOLERATING SIMV MODE NO S/O DISTRESS OBSERVED. SR ON MONITOR. NG-TUBE PLACEMENT VERIFIED BY AUSCULTATION/ASPIRATION OF GASTRIC CONTENTS, ABOUT 160 ML RESIDUAL OBTAINED. TUBE FEEDING HELD, WILL MONITOR RESIDUAL. IV SITES C/D/I/PATENT. NO S/O INFILTRATION/PHLEBITIS OBSERVED UPON FLUSHING. WILL CONTINUE TO MONITOR PT FOR SAFETY AND COMFORT. CALL LIGHT WITHIN REACH. BED IN LOW AND LOCKED POSITION. CALL LIGHT WITHIN REACH. HEAD OF BED ELEVATED.
[2018-11-13] MEDS ORDERED: POTASSIUM CHLORIDE 20 MEQ POWDER PACKET NG SCH (10:00)
[2018-11-13 10:35] LABS: ABG BASE EXCESS 6.4 mmol/L; ABG PCO2 40.9 mmHg (35.0-45.0); ABG PH 7.488 (7.350-7.450); ABG PO2 132.3 mmHg (75.0-100.0); AaDO2 105.9 mmHg; COHb 0.3 % (0.5-1.5); MetHb 0.6 % (0.0-1.5); O2Hb 97.1 % (94.0-97.0); SITE, ABG Right Radial; VENT MODE, BG T-PIECE
[2018-11-13] MEDS: Magnesium 1GM/D5W 100ML PREMIX 100 ML IV SCH ×2 (10:40→12:10)
[2018-11-13] MEDS: POTASSIUM CL. PREMIX PERIPHER. 50 ML IV SCH ×6 (10:40→16:52)
--- NOTE | 2018-11-13 11:24 | NUR ---
MAINTENANCE SERVICES DISPATCHER NOTE TUBE FEEDING RESUMED, RESIDUAL DOWN TO 40 ML. WILL CONTINUE TO MONITOR.
[2018-11-13] MEDS: CLOTRIMAZOLE 1% 15 GM TUBE TP SCH ×2 (12:26→16:34)
[2018-11-13] MEDS: HYDROGEL DRESSING 90 GM TUBE TP SCH (12:26)
[2018-11-13] MEDS: Z GUARD REMEDY 2 OZ OINT TP PRN (16:35)
--- NOTE | 2018-11-13 18:56 | NUR ---
DIRECTOR OF VOLUNTEER SERVICES NOTE PT APPEARS LETHARGIC, BP ELEVATED, TACHYPNEIC. RT CALLED TO BEDSIDE TO PLACE PT BACK ON VENT. IV SITES REMAIN C/D/I/PATENT, NO S/O INFILTRATION/PHLEBITIS OBSERVED UPON FLUSHING. NG-TUBE PLACEMENT VERIFIED BY AUSCULTATION/ASPIRATION OF GASTRIC CONTENTS, 20 ML RESIDUAL OBTAINED. TOLERATING TUBE FEEDING AT 40 ML/HR. SY TO GRAVITY DRAINING CLOUDY, YELLOW URINE. PT'S CARE ENDORSED TO RIG BUILDER RN FOR CONTINUITY OF CARE BED IN LOW AND LOCKED POSITION. CALL LIGHT WITHIN REACH. HEAD OF BED ELEVATED AT 30 DEGREES.
--- NOTE | 2018-11-13 19:30 | NUR ---
MANAGER MATERIAL INITIAL SHIFT NOTES RECEIVED REPORT FROM DAY SHIFT NURSE. RECEIVED PATIENT IN BED, ASLEEP AT THIS TIME, ALERT BUT DISORIENTED AT BASELINE, UNABLE TO FOLLOW COMMANDS, WITH PERIODS OF RESTLESSNESS. ORALLY INTUBATED, CURRENTLY ON SIMV 4, PS 12, FIO2 30%, PEEP 5. PATIENT IN DISTRESS, NOTED WITH TACHYPNEA IN THE 30s, BP ELEVATED. RT CALLED AGAIN TO BEDSIDE TO CHANGE PATIENT BACK TO AC MODE DUE TO RESPIRATORY DISTRESS. BEDSIDE BANK COURIER SHOWS SINUS RHYTHM, WITH BBB AND OCCASIONAL PVCs. NGT PATENT AND INTACT, NOTED WITH 80ML OF GASTRIC RESIDUALS, TUBE FEEDING PLACED ON HOLD. SY CATHETER PATENT AND INTACT, DRAINING CLOUDY YELLOW URINE WITH SEDIMENTS. SHREE PICC LINE AND EMILIA MIDLINE PATENT AND INTACT, ALL PORTS FLUSHED WITH NS. BED IN LOWEST AND LOCKED POSITION. WILL CONTINUE TO CLOSELY MONITOR THE PATIENT
[2018-11-13] MEDS: ATORVASTATIN 40 MG TABLET PO SCH (22:26)
[2018-11-14] VITALS (54 sets, daily range): BP systolic 93–155; BP diastolic 46–90
--- NOTE | 2018-11-14 | NUR ---
HOSPITAL CHIEF FINANCIAL OFFICER NOTES PATIENT NOTED TO BE RESTLESS, KICKING SIDE RAIL. PATIENT REPOSITIONED FOR COMFORT, EFFECTIVE, WILL CONTINUE TO CLOSELY MONITOR
[2018-11-14] MEDS: BLOOD SUGAR DIAGNOSTIC 1 EACH STRIP IN SCH ×5 (00:53→23:51)
[2018-11-14] MEDS: INSULIN REGULAR, HUMAN 100 UNIT/ML 3 ML VIAL SQ PRN ×4 (01:03→23:52)
--- NOTE | 2018-11-14 04:00 | NUR ---
MACHINIST BENCH NOTES BED BATH RENDERED. WOUND CARE PERFORMED PRESCRIBED. PATIENT TOLERATED WELL.
[2018-11-14 04:40] LABS: BASOPHILS # (AUTO) 0.1 /CMM (0.0-0.2); BASOPHILS % (AUTO) 0.7 % (0.0-2.0); EOSINOPHILS % (AUTO) 3.7 % (0.0-6.0); HEMATOCRIT 25 % (33-45); HEMOGLOBIN 7.9 g/dL (11.5-14.8); LYMPHOCYTES # (AUTO) 1.6 /CMM (0.8-4.8); LYMPHOCYTES % (AUTO) 11.3 % (20.0-44.0); MEAN CORPUSCULAR HGB CONC 32 g/dl (31.0-36.0); MEAN CORPUSCULAR VOLUME 84 fL (82-100); MONOCYTES # (AUTO) 1.5 /CMM (0.1-1.30); MONOCYTES % (AUTO) 10.8 % (2.0-12.0); NEUTROPHILS # (AUTO) 10.4 /CMM (1.8-8.9); NEUTROPHILS % (AUTO) 73.5 % (43.0-81.0); PLATELET COUNT (AUTO) 506 /CMM (150-450); RED BLOOD CELL COUNT(AUTO) 2.97 MIL/uL (4.0-5.2); WHITE BLOOD COUNT (AUTO) 14.1 K/uL (4.3-11.0)
[2018-11-14 04:54] LABS: CALCIUM, SERUM 8.1 mg/dL (8.5-10.1); CREATININE 1.1 mg/dL (0.6-1.3); MAGNESIUM 2.1 mg/dL (1.8-2.4); POTASSIUM 3.9 mmol/L (3.5-5.1)
[2018-11-14] MEDS: FOSPHENYTOIN SODIUM PE 100 MG/2 ML VIAL IV SCH ×3 (05:00→21:02)
[2018-11-14] MEDS: PANTOPRAZOLE 40 MG VIAL IV SCH ×2 (06:00→17:42)
--- NOTE | 2018-11-14 08:02 | NUR ---
INITIAL LEATHER PRODUCTS SUPERVISOR NOTE RCVD PT AWAKE, UNABLE TO FOLLOW COMMANDS, SR ON MONITOR. TOLERATING ORDERED VENT SETTINGS WELL. NG-TUBE PLACEMENT VERIFIED BY AUSCULTATION/ASPIRATION OF GASTRIC CONTENTS ABOUT 20 ML RESIDUAL OBTAINED. SY TO GRAVITY DRAINING CLOUDY, YELLOW URINE. IV SITES C/D/I/PATENT. NO S/O INFILTRATION/PHLEBITIS OBSERVED UPON FLUSHING. WILL CONTINUE TO MONITOR PT FOR SAFETY AND COMFORT. BED IN LOW AND LOCKED POSITION. CALL LIGHT WITHIN REACH. HEAD OF BED ELEVATED AT 30 DEGREES.
[2018-11-14] MEDS: CARVEDILOL 6.25 MG TABLET PO SCH ×2 (09:01→21:01)
[2018-11-14] MEDS: ASPIRIN 81 MG TAB.CHEW NG SCH (09:01)
[2018-11-14] MEDS: HEPARIN SODIUM, PORCINE 5000 UNITS/1 ML VIAL SQ SCH ×2 (09:05→21:01)
[2018-11-14] MEDS: CLOTRIMAZOLE 1% 15 GM TUBE TP SCH ×2 (09:06→17:42)
[2018-11-14] MEDS: HYDROGEL DRESSING 90 GM TUBE TP SCH (09:07)
[2018-11-14] MEDS: INSULIN GLARGINE, 100 UNIT/ML CARTRIDGE SQ SCH ×3 (09:10→21:51)
[2018-11-14] MEDS: GLUCERNA 1.2 1,000 ML BOTTLE NG PRN (10:50)
--- NOTE | 2018-11-14 16:22 | NUR ---
KRAFT DIGESTER OPERATOR NOTE PT'S PARENTS AND JESENIA (SISTER) UPDATED ON PT'S CONDITION. DR. ROSSI CALLED MEDICAL RECORDS REQUESTED SPOKE WITH DONG. RELEASE OF MEDICAL RECORDS WAS FAXED TO HER. JESENIA LEFT [facility] PAPERWORK FOR DR. VUONG TO FILL OUT TOMORROW, EMILIA RUTLEDGE AWARE TO F/U TOMORROW WITH BANDAGE MAKER.
--- NOTE | 2018-11-14 18:24 | NUR ---
IMPLEMENTATION MANAGER NOTE PT CONTINUES TO HAVE PERIODS OF RESTLESSNESS, AT TIMES FALLS ASLEEP. SR ON MONITOR TOLERATING ORDERED VENT SETTINGS. NG-TUBE PLACEMENT VERIFIED BY AUSCULTATION/ASPIRATION. NO GASTRIC RESIDUAL OBTAINED ON THE LAST CHECK. TUBE FEEDING INCREASED TO 50 ML/HR AT 0912. IV SITES C/D/I/PATENT. NO S/O INFILTRATION/PHLEBITIS OBSERVED UPON FLUSHING. SY TO GRAVITY DRAINING CLOUDY, YELLOW URINE. PT'S CARE WILL BE ENDORSED TO HOLLOW CORE DOOR FRAME ASSEMBLER RN FOR CONTINUITY OF CARE BED IN LOW AND LOCKED POSITION. CALL LIGHT WITHIN REACH. HEAD OF BED ELEVATED AT 30 DEGREES.
--- NOTE | 2018-11-14 19:30 | NUR ---
Received patient awake eyes open but not tracking not following commands.Moves all extremities with bilateral soft wrist restraints in place for safety.Released and reapplied after turning and repositioning patient.On continuous cardiac monitoring reading SR.Patient on full vent support on AC mode well tolerated.NGT feeding in progress.Placement verified by auscultation and aspiration. Residual 5 ml.Feeding increase to goal rate of 55 ml/hr.HOB elevated.FC with cloudy urine.
[2018-11-14] MEDS: ATORVASTATIN 40 MG TABLET PO SCH (21:45)
[2018-11-15] VITALS (49 sets, daily range): BP systolic 90–168; BP diastolic 27–133
--- NOTE | 2018-11-15 | NUR ---
Patient awake trashing in bed.With BM perineal care and bed bath done.Sacral wound dressing changed.Turned and repositioned.FSBS 182 coverage given per sliding scale.
[2018-11-15] MEDS: PANTOPRAZOLE 40 MG VIAL IV SCH ×2 (04:06→17:29)
[2018-11-15 04:54] LABS: BASOPHILS # (AUTO) 0.1 /CMM (0.0-0.2); BASOPHILS % (AUTO) 0.8 % (0.0-2.0); EOSINOPHILS % (AUTO) 2.9 % (0.0-6.0); HEMATOCRIT 24 % (33-45); HEMOGLOBIN 7.5 g/dL (11.5-14.8); LYMPHOCYTES # (AUTO) 1.6 /CMM (0.8-4.8); LYMPHOCYTES % (AUTO) 12.3 % (20.0-44.0); MEAN CORPUSCULAR HGB CONC 31 g/dl (31.0-36.0); MEAN CORPUSCULAR VOLUME 85 fL (82-100); MONOCYTES % (AUTO) 7.8 % (2.0-12.0); NEUTROPHILS # (AUTO) 9.7 /CMM (1.8-8.9); NEUTROPHILS % (AUTO) 76.2 % (43.0-81.0); PLATELET COUNT (AUTO) 446 /CMM (150-450); RED BLOOD CELL COUNT(AUTO) 2.84 MIL/uL (4.0-5.2); WHITE BLOOD COUNT (AUTO) 12.7 K/uL (4.3-11.0)
[2018-11-15] MEDS: FOSPHENYTOIN SODIUM PE 100 MG/2 ML VIAL IV SCH ×3 (05:01→21:34)
[2018-11-15 05:14] LABS: BILIRUBIN,TOTAL 0.2 mg/dL (0.2-1.0); CALCIUM, SERUM 7.8 mg/dL (8.5-10.1); MAGNESIUM 2.2 mg/dL (1.8-2.4); PHOSPHORUS 3.7 mg/dL (2.5-4.9); POTASSIUM 3.8 mmol/L (3.5-5.1)
[2018-11-15] MEDS: BLOOD SUGAR DIAGNOSTIC 1 EACH STRIP IN SCH ×4 (06:13→23:32)
[2018-11-15] MEDS: INSULIN REGULAR, HUMAN 100 UNIT/ML 3 ML VIAL SQ PRN ×3 (06:16→18:19)
--- NOTE | 2018-11-15 06:33 | NUR ---
Patient resting tolerating feeding well.Kept comfortable.VS remains stable.SR.No significant changed noted.Will endorse to day shift RN for continuity of care.
[2018-11-15] MEDS: CLOTRIMAZOLE 1% 15 GM TUBE TP SCH ×2 (09:24→17:30)
[2018-11-15] MEDS: CARVEDILOL 6.25 MG TABLET PO SCH ×2 (09:27→21:33)
[2018-11-15] MEDS: ASPIRIN 81 MG TAB.CHEW NG SCH (09:27)
[2018-11-15] MEDS: HEPARIN SODIUM, PORCINE 5000 UNITS/1 ML VIAL SQ SCH ×2 (09:28→21:36)
[2018-11-15] MEDS: INSULIN GLARGINE, 100 UNIT/ML CARTRIDGE SQ SCH ×2 (09:30→21:43)
--- NOTE | 2018-11-15 09:30 | NUR ---
VENT CHANGES BELOW PER DR. RUIZ: CPAP 5 PS 15 FIO2 40% Addendum: 11/15/18 at 0932 by RUFUS JOHNSON RT Amended: Links added.
[2018-11-15] MEDS: HYDROGEL DRESSING 90 GM TUBE TP SCH (09:31)
--- NOTE | 2018-11-15 10:00 | NUR ---
PT ON CPAP 03/14 ON 30% NO DIS-STRESS NO SOB SAT 990-100%. ASSISTED WITH AM HYGIENE AND SKIN CARE. LOTRIMIN TO [place] AREA REDNESS. NEW MEPILEX WITH HYDROGEL TO SACRAL DTI. PT REPOSITIONED, HOWEVER DUE TO CONFUSION AND ALOC PT WILL NOT REMAIN ON THE SIDE.
[2018-11-15 11:17] LABS: ABG BASE EXCESS 4.4 mmol/L; ABG PCO2 35.2 mmHg (35.0-45.0); ABG PH 7.512 (7.350-7.450); ABG PO2 100.9 mmHg (75.0-100.0); AaDO2 71.6 mmHg; COHb 0.2 % (0.5-1.5); MetHb 0.8 % (0.0-1.5); SITE, ABG Right Radial; VENT MODE, BG PS 15
--- NOTE | 2018-11-15 14:00 | NUR ---
FAMILY AT BEDSIDE UPDATED ON PROGRESS.
--- NOTE | 2018-11-15 17:17 | NUR ---
PT. IS AWAKE AND TOLERATING WELL ON CPAP 5/ PS 15 @ 30% FIO2. Addendum: 11/15/18 at 1718 by RUFUS JOHNSON RT Amended: Links added.
[2018-11-15] MEDS: GLUCERNA 1.2 1,000 ML BOTTLE NG PRN (18:17)
--- NOTE | 2018-11-15 19:30 | NUR ---
PRIZE FIGHTER NOTE PT RECEIVED AWAKE WITH OPEN EYES. DOES NOT FOLLOW VERBAL COMMANDS.NOTED TO BE RESTLESS AND MOVING AROUND IN BED. INTUBATED WITH ETT 7.0 AND 22CM @ THE LIP AND ON CPAP TOLERATING WELL. HOB ELEVATED AND ON ASPIRATION PRECAUTIONS. BREATHING UNLABORED. OGTUBE IN PLACE WITH FEEDING INFUSING AND NO RESIDUALS NOTED. TELE- SR. IV IN PLACE AND FLUSHING WELL. BILATERAL SOFT WRIST RESTRAINTS IN PLACE AND RADIAL PULSES PALPABLE BILATERALLY. SY CATHETER IN PLACE AND DRAINING BY GRAVITY. WILL CONTINUE TO MONITOR.
--- NOTE | 2018-11-15 20:30 | NUR ---
HARP ACTION ASSEMBLER NOTE DR. KATE AT BEDSIDE WITH PT SISTER JESENIA.
[2018-11-15] MEDS: ATORVASTATIN 40 MG TABLET PO SCH (21:33)
[2018-11-16] VITALS (36 sets, daily range): BP systolic 104–168; BP diastolic 45–128
--- NOTE | 2018-11-16 00:26 | NUR ---
RT PT received intubated on [facility] vent with noted setting. ETT patent and secure via anchor fast. E COMMERCE SOLUTION ARCHITECT done, ambu bag at [facility]. Vent to red outlet, alarms set and audible. pt tolerating setting well. No sob or distress noted. Addendum: 11/16/18 at 0102 by MEKHI LÓPEZ RT Amended: Links added.
[2018-11-16] MEDS: INSULIN REGULAR, HUMAN 100 UNIT/ML 3 ML VIAL SQ PRN ×4 (00:57→17:15)
--- NOTE | 2018-11-16 03:00 | NUR ---
EMPLOYMENT INSTRUCTIONAL ASSOCIATE NOTE GAVE REPORT TO NURSE VILLARREAL FOR CONTINUITY OF CARE.
[2018-11-16] MEDS: ACETAMINOPHEN 650 MG/20.3 ML UDC NG PRN ×2 (04:41→11:47)
[2018-11-16] MEDS: PANTOPRAZOLE 40 MG VIAL IV SCH ×2 (04:41→17:07)
[2018-11-16 05:01] LABS: BASOPHILS # (AUTO) 0.1 /CMM (0.0-0.2); BASOPHILS % (AUTO) 0.6 % (0.0-2.0); EOSINOPHILS % (AUTO) 2.6 % (0.0-6.0); HEMATOCRIT 24 % (33-45); HEMOGLOBIN 7.4 g/dL (11.5-14.8); LYMPHOCYTES # (AUTO) 1.4 /CMM (0.8-4.8); LYMPHOCYTES % (AUTO) 10.2 % (20.0-44.0); MEAN CORPUSCULAR HGB CONC 31 g/dl (31.0-36.0); MEAN CORPUSCULAR VOLUME 84 fL (82-100); MONOCYTES % (AUTO) 7.4 % (2.0-12.0); NEUTROPHILS # (AUTO) 10.9 /CMM (1.8-8.9); NEUTROPHILS % (AUTO) 79.2 % (43.0-81.0); PLATELET COUNT (AUTO) 447 /CMM (150-450); RED BLOOD CELL COUNT(AUTO) 2.82 MIL/uL (4.0-5.2); WHITE BLOOD COUNT (AUTO) 13.8 K/uL (4.3-11.0)
[2018-11-16 05:09] LABS: CALCIUM, SERUM 7.9 mg/dL (8.5-10.1); MAGNESIUM 2.1 mg/dL (1.8-2.4); PHOSPHORUS 3.9 mg/dL (2.5-4.9); POTASSIUM 3.6 mmol/L (3.5-5.1)
[2018-11-16] MEDS: BLOOD SUGAR DIAGNOSTIC 1 EACH STRIP IN SCH ×3 (05:24→17:05)
[2018-11-16] MEDS: FOSPHENYTOIN SODIUM PE 100 MG/2 ML VIAL IV SCH ×3 (05:36→21:08)
--- NOTE | 2018-11-16 07:30 | NUR ---
ICU/RN: Pt received intubated, tolerating CPAP mode, no distress noted, awake, alert, unable to track or follow commands, no purposeful movement noted. NGT + placement, auscultated, no residuals noted. Restraint care rendered. Turned and repositioned for comfort. Alarm sounds audible. Will cont to monitor pt.
[2018-11-16] MEDS: ASPIRIN 81 MG TAB.CHEW NG SCH (08:18)
[2018-11-16] MEDS: HEPARIN SODIUM, PORCINE 5000 UNITS/1 ML VIAL SQ SCH ×2 (08:20→21:00)
[2018-11-16] MEDS: INSULIN GLARGINE, 100 UNIT/ML CARTRIDGE SQ SCH ×2 (08:21→21:11)
[2018-11-16] MEDS: CARVEDILOL 12.5 MG TABLET PO SCH ×2 (08:22→21:08)
[2018-11-16] MEDS: HYDROGEL DRESSING 90 GM TUBE TP SCH (08:23)
[2018-11-16] MEDS: CLOTRIMAZOLE 1% 15 GM TUBE TP SCH ×2 (08:23→17:05)
--- NOTE | 2018-11-16 08:45 | NUR ---
ICU/RN: Dr Crenshaw at bedside; updated on pt status. spoke with Stephani, sister at length regarding poc.
[2018-11-16] MEDS ORDERED: LISINOPRIL (10MG) 10 MG TABLET PO SCH (11:00)
--- NOTE | 2018-11-16 11:30 | NUR ---
ICU/RN: Mina Knox, CORRUGATOR at bedside. Updated on pt status. Informed that Dr Crenshaw spoke with family regarding tracheostomy placement and have consented. Informed of t-max 100.8, cooling measures in place, will administer tylenol for relief.
--- NOTE | 2018-11-16 11:40 | NUR ---
ICU/RN: Dr Seals at bedside for GI consult for PEG placement. Informed MD that family is agreeable to trach and PEG placement. Stephani, sister's phone number provided to MD. Per MD, he will schedule the procedure for tomorrow. Hold heparin doses starting tonight for surgery tomorrow.
--- NOTE | 2018-11-16 14:40 | NUR ---
ICU/RN: Dr North at bedside; updated on pt status. Informed of low grade temps, t-max 100.8. Per MD, cont to monitor pt off abx
--- NOTE | 2018-11-16 15:30 | NUR ---
ICU/RN: Bed bath, hygienic care rendered. Pt restless and constantly moving and sliding down the bed. Fall risk precautions in place. Restraint care rendered, at high risk for self-extubation. Wound care rendered to sacral wound. Lotrimin and Z-guard applied as ordered
[2018-11-16] MEDS ORDERED: GLUCAGON,HUMAN RECOMBINANT 1 MG/VIAL VIAL ONE (16:52)
[2018-11-16] MEDS: Z GUARD REMEDY 2 OZ OINT TP PRN (17:53)
--- NOTE | 2018-11-16 19:30 | NUR ---
VMWARE ARCHITECT NOTE PT RECEIVED AWAKE WITH OPEN EYES. DOES NOT FOLLOW VERBAL COMMANDS.NOTED TO BE RESTLESS. INTUBATED WITH ETT 7.0 AND 22CM @ THE LIP AND ON CPAP TOLERATING WELL. HOB ELEVATED AND ON ASPIRATION PRECAUTIONS. BREATHING UNLABORED. OGTUBE IN PLACE WITH FEEDING INFUSING AND NO RESIDUALS NOTED. TELE- SR. IV IN PLACE AND FLUSHING WELL. BILATERAL SOFT WRIST RESTRAINTS IN PLACE AND RADIAL PULSES PALPABLE BILATERALLY. WILL PUT PT NPO AT MIDNIGHT. SY CATHETER IN PLACE AND DRAINING BY GRAVITY. WILL CONTINUE TO MONITOR.
--- NOTE | 2018-11-16 20:00 | NUR ---
PT RECEIVED ORALLY INTUBATED WITH A 7.0 ETT SECURED AT 22CM AT THE LIP LINE, PT IS ON THE VENT WITH NOTED SETTINGS. PT TOLERATING CPAP MODE. PT IS AWAKE AND DOES NOT FOLLOW COMMANDS. SUCTIONED SMALL AMOUNT OF WHITE THICK SECRETIONS. VENT ALARMS ARE SET AND AUDIBLE WITH AMBU BAG @ BEDSIDE. SCHOOL OFFICE MANAGER CUFF PRESSURE NOTED. VENT IS PLUGGED INTO RED OUTLET. NO RESPIRATORY DISTRESS NOTED AT THIS TIME, WILL CONTINUE TO MONITOR.
[2018-11-16] MEDS: ATORVASTATIN 40 MG TABLET PO SCH (21:08)
[2018-11-17] VITALS (63 sets, daily range): BP systolic 109–167; BP diastolic 41–98
[2018-11-17] MEDS: BLOOD SUGAR DIAGNOSTIC 1 EACH STRIP IN SCH ×5 (00:34→23:44)
[2018-11-17] MEDS: hydrALAZINE HCL IV 20 MG VIAL IV PRN ×2 (00:34→19:48)
[2018-11-17 04:44] LABS: BASOPHILS # (AUTO) 0.1 /CMM (0.0-0.2); BASOPHILS % (AUTO) 0.6 % (0.0-2.0); EOSINOPHILS % (AUTO) 2.2 % (0.0-6.0); HEMATOCRIT 24 % (33-45); HEMOGLOBIN 7.5 g/dL (11.5-14.8); LYMPHOCYTES # (AUTO) 1.1 /CMM (0.8-4.8); LYMPHOCYTES % (AUTO) 8.6 % (20.0-44.0); MEAN CORPUSCULAR HGB CONC 31 g/dl (31.0-36.0); MEAN CORPUSCULAR VOLUME 85 fL (82-100); MONOCYTES # (AUTO) 1.1 /CMM (0.1-1.30); MONOCYTES % (AUTO) 7.9 % (2.0-12.0); NEUTROPHILS # (AUTO) 10.7 /CMM (1.8-8.9); NEUTROPHILS % (AUTO) 80.7 % (43.0-81.0); PLATELET COUNT (AUTO) 438 /CMM (150-450); RED BLOOD CELL COUNT(AUTO) 2.85 MIL/uL (4.0-5.2); WHITE BLOOD COUNT (AUTO) 13.3 K/uL (4.3-11.0)
[2018-11-17 04:48] LABS: ALBUMIN 2.1 g/dL (3.4-5.0); BILIRUBIN,TOTAL 0.3 mg/dL (0.2-1.0); PHOSPHORUS 3.8 mg/dL (2.5-4.9); POTASSIUM 3.7 mmol/L (3.5-5.1); TOTAL PROTEIN, SERUM 6.2 g/dL (6.4-8.2)
[2018-11-17] MEDS: FOSPHENYTOIN SODIUM PE 100 MG/2 ML VIAL IV SCH ×3 (05:23→21:01)
[2018-11-17] MEDS: PANTOPRAZOLE 40 MG VIAL IV SCH ×2 (05:23→16:45)
--- NOTE | 2018-11-17 07:23 | NUR ---
CLIENT SERVICE EXECUTIVE NOTE PT REMAINED STABLE DURING SHIFT. NO ACUTE DISTRESS NOTED. NPO SINCE MIDNIGHT. ALL NEEDS ATTENDED TO PROMPTLY. BILATERAL SOFT WRIST RESTRAINTS IN PLACE. KEPT CLEAN AND DRY. SPOKE WITH SURGERY, PT WILL BE TAKEN TO SURGERY AT SCHEDULED TIME. WILL ENDORSE TO NEXT SHIFT FOR CONTINUITY OF CARE.
--- NOTE | 2018-11-17 07:40 | NUR ---
PUBLIC INFORMATION COORDINATOR: pt.is rest now, on wrists restraints, no sedation, can open eyes, arms/legs activity+, but unable to follow commands, on CPAP mode last days, O2sat. over 96%, no SOB, SR, SBP is over 100, got one dose of Hydralazine, suctioned by RT, neuro status: see assessment q2h, plan: 08.30 PEG placement, Trach 13.30, NPO, hold all PO meds, BS 184, hold Insulin, Lantus by report, Heparin on hold
--- NOTE | 2018-11-17 07:45 | NUR ---
APPLICATIONS SUPPORT SPECIALIST: PICC arango lumen is occluded
[2018-11-17 08:27] LABS: ABG BASE EXCESS 5.4 mmol/L; ABG PCO2 33.1 mmHg (35.0-45.0); ABG PH 7.546 (7.350-7.450); ABG PO2 129.6 mmHg (75.0-100.0); AaDO2 45.4 mmHg; COHb 0.3 % (0.5-1.5); MetHb 0.9 % (0.0-1.5); O2Hb 96.8 % (94.0-97.0); PEEP,BG 5 cm H2O; SITE, ABG Right Radial; VENT MODE, BG CPAP 30%
--- NOTE | 2018-11-17 08:30 | NUR ---
TOOL AND MACHINE MAINTAINER: updated with pt. VS, neuro status, ABG, POC: PEG 08.30 and trach 13.30 placement today, said: place pt. back on AC mode, Diprivan gtt PRN
[2018-11-17] MEDS: HEPARIN SODIUM, PORCINE 5000 UNITS/1 ML VIAL SQ SCH ×2 (09:00→21:00)
[2018-11-17] MEDS: INSULIN GLARGINE, 100 UNIT/ML CARTRIDGE SQ SCH ×2 (09:00→22:00)
--- NOTE | 2018-11-17 09:10 | NUR ---
DRY BOX OPERATOR: anesthesiologist updated with pt.current condition, neuro status, VS, history, meds, labs, NPO, BS, AC mode vent., on hold: heparin, ISS, lantus, coreg, lisinopril/agreed, doesn't need Diprivan now
--- NOTE | 2018-11-17 09:39 | NUR ---
GIFT OFFICER: placed in PEG/GT, said: resume PO meds, water in 4hrs, start GTF tomorrow
--- NOTE | 2018-11-17 09:50 | NUR ---
LOT PORTER: pt.is awake now(after PEG placement), grimacing, coughing, restless, SBP 160, SR 75, O2sat. over 96%, will resume Diprivan gtt
[2018-11-17] MEDS: PROPOFOL 100 ML IV PRN ×2 (10:08→17:57)
--- NOTE | 2018-11-17 10:15 | NUR ---
TEXTILE MACHINE MECHANIC: MUNDO Knox is in room/notified re pt.status, VS, BG, NPO, PEG done, plan for trach, AC mode/Diprivan gtt, confirmed hold ISS, Lantus, Heparin, see new orders
[2018-11-17] MEDS: CLOTRIMAZOLE 1% 15 GM TUBE TP SCH ×2 (10:52→16:47)
[2018-11-17] MEDS: HYDROGEL DRESSING 90 GM TUBE TP SCH (10:53)
[2018-11-17] MEDS ORDERED: LISINOPRIL (10MG) 10 MG TABLET GT SCH (11:22)
[2018-11-17] MEDS ORDERED: PHARMACY TO CHANGE PO MEDS TO GT/NG XX PRN (11:30)
[2018-11-17] MEDS ORDERED: DOCUSATE SODIUM LIQ 100 MG/10 ML UDC GT PRN (11:30)
--- NOTE | 2018-11-17 12:30 | NUR ---
QUARTER TRIMMER: , were in room/updated, ordered: free water 150ml q6h after surgery
--- NOTE | 2018-11-17 13:10 | NUR ---
RODENT CONTROL WORKER: BG 194, NPO status, will change ISS from moderate to NPO and cover
--- NOTE | 2018-11-17 13:40 | NUR ---
AIRPLANE ENGINEER: is in room, notified re pt.current condition, history, Dx, VS, sedation level, vent setting, NPO, meds, spoke with
[2018-11-17] MEDS: INSULIN REGULAR, HUMAN 100 UNIT/ML 3 ML VIAL SQ PRN ×3 (13:47→23:46)
[2018-11-17] MEDS ORDERED: DEXTROSE 50%-WATER 50 ML DISP.SYRIN IV PRN (14:00)
--- NOTE | 2018-11-17 15:00 | NUR ---
CLOTHING TRADES WORKERS: pt.is back from OR, sedated well with 25 mcg/kg/m Diprivan, trach site with bloody secretion/suctioned, trach care done, SR, SBP over 100, below 150, pt.is able eyes for seconds by touch, rest, on wrists restraints, Stephani/pt.sister is in room, updated with pt.POC
[2018-11-17] MEDS: ASPIRIN 81 MG TAB.CHEW NG SCH (15:09)
--- NOTE | 2018-11-17 16:49 | NUR ---
CASE FINISHER: pt.is sedated well with 25 mcg/kg/m Diprivan, rest now, spont.legs, arms weak activity, can open eyes for seconds by touch, no grimacing, on wrists restraints, SR, SBP over 100 below 150, O2sat. over 94%, no SOB, trach care done, PM, skin, wound care done, keep HOB over 40, repositioned q2h, ID PRODUCT APPLICATIONS ENGINEER was in room/updated
--- NOTE | 2018-11-17 20:00 | NUR ---
Received patient sedated on Diprivan gtt at 25 mcg.With trach to vent on AC mode.Noted some bleeding from trach site.Dressing changed.SR with elevated SBP > 160's.Hydralazine 10 mg IV administered as PRN.Will continue to monitor BP.No signs of distress noted.GT clamped site clean and dry.NPO status.FC to gravity with yellow urine.IVF NS at TKO and Diprivan gtt infusing via EMILIA PICC LINE site intact.Turned and repositioned. Addendum: 11/17/18 at 2204 by HUNG HAINES RN please note PICC LINE is in SHREE not RIGHT
--- NOTE | 2018-11-17 20:37 | NUR ---
RT PT RECEIVED TRACHED SHILEY 8 DCT ON [facility] VENT ON CHARTED AC MODE SETTINGS. NO SIGNS OF RESP DISTRESS/SOB NOTED AT THIS TIME. ICICLE MACHINE OPERATOR CHECKED. PT SUCTIONED. ALARMS SET AND AUDIBLE. AMBUBAG AT BEDSIDE. VENT CONNECTED TO RED OUTLET. WILL CONT TO MONITOR. Addendum: 11/17/18 at 2040 by HAN ZEPEDA RT Amended: Links added.
[2018-11-17] MEDS: CARVEDILOL 12.5 MG TABLET GT SCH (21:00)
[2018-11-17] MEDS: ATORVASTATIN 40 MG TABLET GT SCH (22:02)
[2018-11-18] VITALS (53 sets, daily range): BP systolic 98–193; BP diastolic 32–130
--- NOTE | 2018-11-18 | NUR ---
Feverish 100.4/ax bed bath rendered.Complete linens changed.Turned and repositioned.
[2018-11-18] MEDS: PROPOFOL 100 ML IV PRN ×2 (00:27→08:56)
[2018-11-18] MEDS: ACETAMINOPHEN 650 MG/20.3 ML UDC NG PRN ×3 (04:00→23:39)
[2018-11-18] MEDS: PANTOPRAZOLE 40 MG VIAL IV SCH ×2 (04:00→16:14)
--- NOTE | 2018-11-18 04:00 | NUR ---
Patient febrile 101.2/ax cooling measures done continuously and Tylenol administered as PRN. Turned and repositioned.
[2018-11-18 04:45] LABS: BASOPHILS # (AUTO) 0.1 /CMM (0.0-0.2); BASOPHILS % (AUTO) 0.6 % (0.0-2.0); EOSINOPHILS % (AUTO) 0.7 % (0.0-6.0); HEMATOCRIT 24 % (33-45); HEMOGLOBIN 7.3 g/dL (11.5-14.8); LYMPHOCYTES % (AUTO) 6.1 % (20.0-44.0); MEAN CORPUSCULAR HGB CONC 31 g/dl (31.0-36.0); MEAN CORPUSCULAR VOLUME 85 fL (82-100); MONOCYTES # (AUTO) 1.5 /CMM (0.1-1.30); MONOCYTES % (AUTO) 8.6 % (2.0-12.0); NEUTROPHILS # (AUTO) 14.4 /CMM (1.8-8.9); PLATELET COUNT (AUTO) 457 /CMM (150-450); RED BLOOD CELL COUNT(AUTO) 2.79 MIL/uL (4.0-5.2); WHITE BLOOD COUNT (AUTO) 17.1 K/uL (4.3-11.0)
[2018-11-18 04:56] LABS: CALCIUM, SERUM 7.8 mg/dL (8.5-10.1); CREATININE 1.2 mg/dL (0.6-1.3); MAGNESIUM 1.9 mg/dL (1.8-2.4); PHOSPHORUS 3.3 mg/dL (2.5-4.9); POTASSIUM 3.9 mmol/L (3.5-5.1)
[2018-11-18] MEDS: FOSPHENYTOIN SODIUM PE 100 MG/2 ML VIAL IV SCH ×2 (05:00→12:57)
[2018-11-18] MEDS: BLOOD SUGAR DIAGNOSTIC 1 EACH STRIP IN SCH ×4 (05:57→23:36)
[2018-11-18] MEDS: INSULIN REGULAR, HUMAN 100 UNIT/ML 3 ML VIAL SQ PRN ×4 (05:59→23:38)
--- NOTE | 2018-11-18 06:30 | NUR ---
Patient resting no acute distress noted.Diprivan gtt maintained at 25 mcg and infusing well. Patient latest temp 99.9 /ax.VS stable.SR.FSBS 151 coverage given per sliding scale.AM care done.Free water flush per GT 150 ml Q 6 hrs done.Will restart GT feeding today.Will endorse to day shift for continuity of care.
--- NOTE | 2018-11-18 07:16 | NUR ---
HEALTH CENTER ASSOCIATE: pt.is sedated with Diprivan 25 mcg/kg/m, reactive by light pain stimuli, decreased to 20 mcg/kg/m, stont.arms, legs activity with suction, grimacing, SBP is over 100 below 150, SR, O2sat. over 96% on 30%FiO2, trach: small bloody discharge, H/H 7.3/24, on Heparin sq/will s/w , T101.2 episode over night, NPO/will restart GTF by , last BG 151/covered ISS, lantus was not given over night
--- NOTE | 2018-11-18 08:15 | NUR ---
INDUSTRIAL COOK: pt.is tachypneic now, grimacing, face, arms muscles multiple jerking/Sz, increased Diprivan to 30 mcg, Ativan given
[2018-11-18] MEDS: LORAZEPAM INJ 2 MG/ML VIAL IV PRN ×2 (08:25→17:30)
--- NOTE | 2018-11-18 08:30 | NUR ---
AUTOMATIC BEAM WARPER TENDER: is in room, notified re pt.neuro status, Sz episode, sedation level, VS, BP level/meds, I/O, H/H 7.3/24, T 101.2 episode, labs, trach suction amount, said: continue all same BP meds, ordered: BCx2, U/C
[2018-11-18] MEDS: ASPIRIN 81 MG TAB.CHEW NG SCH (08:48)
[2018-11-18] MEDS: CARVEDILOL 12.5 MG TABLET GT SCH ×2 (08:48→21:04)
[2018-11-18] MEDS: HYDROGEL DRESSING 90 GM TUBE TP SCH (08:49)
[2018-11-18] MEDS: CLOTRIMAZOLE 1% 15 GM TUBE TP SCH ×2 (08:49→16:14)
--- NOTE | 2018-11-18 09:00 | NUR ---
ACCOUNT EXECUTIVE SOFTWARE SALES: is in room, updated with all above, aware neurologist is on case, said: continue heparin sq, ordered: Dilantin level V,
[2018-11-18 09:07] LABS: ABG BASE EXCESS 1.8 mmol/L; ABG OXYGEN SATURATION 90.6 % (92.0-98.5); ABG PH 7.496 (7.350-7.450); ABG PO2 58.2 mmHg (75.0-100.0); AaDO2 116.9 mmHg; COHb 0.9 % (0.5-1.5); MetHb 0.6 % (0.0-1.5); O2Hb 89.2 % (94.0-97.0); SITE, ABG Right Radial
--- NOTE | 2018-11-18 10:00 | NUR ---
OIL RIGGER: is room, updated with all above, ABG, spoke with pt.sister, said: titrate Diprivan off, monitor neuro reaction, ordered: CPAP tomorrow, RT is aware
[2018-11-18] MEDS: HEPARIN SODIUM, PORCINE 5000 UNITS/1 ML VIAL SQ SCH (10:17)
[2018-11-18] MEDS: INSULIN GLARGINE, 100 UNIT/ML CARTRIDGE SQ SCH ×2 (10:17→22:13)
[2018-11-18] MEDS: GLUCERNA 1.2 1,000 ML BOTTLE NG PRN (10:33)
--- NOTE | 2018-11-18 11:40 | NUR ---
DETAILER: GTF residual is 30ml now, keep HOB over 40, T102.1 now, hypoT measures initiated, Tylenol given, Judeen, IDNP is in room, updated with all above, ordered: +sputum culture, anbtxs, UA, O2sat. 88-90% now, no SOB, SR, Tom,RT suctioned pt.well, FiO2 up to 60%, pt.got supine position, pt.family is in room/updated
[2018-11-18 11:49] LABS: APPEARANCE,URINE SL CLOUDY (CLEAR); BILIRUBIN,URINE 1+ (NEGATIVE); BLOOD, URINE NEGATIVE Ery/uL (NEGATIVE); COLOR,URINE YELLOW (YELLOW); KETONES,URINE TRACE (NEGATIVE); LEUKOCYTE ESTERASE ,URINE TRACE (NEGATIVE); NITRITE, URINE NEGATIVE (NEGATIVE); PH,URINE 5.5 (5.0-8.0); PROTEIN,URINE 1+ mg/dl (NEGATIVE); UGLUCOSE NEGATIVE (NEGATIVE); UROBILINOGEN,URINE 0.2 EU/dL (0.2)
[2018-11-18 11:58] LABS: BACTERIA,URINE Moderate /HPF (None Seen); RBC,URINE 0-2 /HPF (0-2); SQUAMOUS EPITHELIAL CELL,UR Few /HPF (None Seen); YEAST,URINE Moderate /HPF (None Seen)
[2018-11-18] MEDS ORDERED: PIPERACILLIN /TAZOBACTAM 3.375 G in IV D5W 50 ML IV SCH (12:00)
[2018-11-18] MEDS ORDERED: DEXTROSE 50%-WATER 50 ML DISP.SYRIN IV PRN (12:30)
[2018-11-18] MEDS ORDERED: FEE PK DOSING 1 MIN EA MC ONE (12:44)
[2018-11-18] MEDS ORDERED: CEFEPIME 1 GM VIAL IM SCH (13:00)
[2018-11-18] MEDS ORDERED: PIPERACILLIN /TAZOBACTAM 3.375 G in IV D5W 100 ML IV SCH (13:00)
--- NOTE | 2018-11-18 13:05 | NUR ---
MATERIAL REQUISITIONER: O2sat.over 92% now, SR, no SOB, pt.is reactive (grimacing, trace arms, legs activity by touch stimuli), SBP over 100 below 160, GTF residual 120ml now, stop GTF, keep HOB up, recheck in 2hrs
[2018-11-18] MEDS ORDERED: VANCOMYCIN 1.5 GM in IV D5W 500 ML IV ONE (13:30)
--- NOTE | 2018-11-18 14:00 | NUR ---
SCREEN EXAMINER: no more Sz activity, Dilantin level is still pending, will call neurologist
[2018-11-18] MEDS: CEFEPIME 1 GM in IV D5W 50 ML IV SCH (14:22)
--- NOTE | 2018-11-18 14:55 | NUR ---
SAP BUSINESS INTELLIGENCE CONSULTANT: is in room/notified re pt.current condition, VS, high residual 120ml GTF episode, rate, on hold now, pt.is getting 150ml free water q6h too, next recheck GTR time is in 10mins, said: if residual is still high start Reglan 10 mg IV q6h, restart GTF with low rate
--- NOTE | 2018-11-18 15:14 | NUR ---
COSMETICIAN: GT residual 100ml now, Reglan ordered, see prev.note
--- NOTE | 2018-11-18 15:59 | NUR ---
PRINTED CIRCUIT PHOTOGRAPHER: pt.is able to open eyes by name, weak arms,legs activity, no any following commands activity, rest, RR WNL, O2sat.over 97%, continue FiO2 40%, Neurologist called/updated with pt.last 24 hrs events, neurostatus, Sz episode, Dilantin level is still pending, meds, orders, MDs visits, going to see pt.
[2018-11-18] MEDS: METOCLOPRAMIDE HCL 10 MG/2 ML VIAL IV SCH ×2 (16:08→22:05)
--- NOTE | 2018-11-18 16:30 | NUR ---
HAND POTTER: is in room/notified re all above, VS, Sz episode, neuro status, surgeries, GTF, high residual episode, Dilantin level is still pending, T102.1 episode, meds, labs, ordered: d/c IV Fosphenytoin, start Dilantin PO 300mg q12h if GTF residual WNL otherwise call neurologist
--- NOTE | 2018-11-18 17:30 | NUR ---
PHARMACY TECHNICIAN INPATIENT: pt.is with arms, face, upper body muscles superficial tremor/muscles jerking now, no injury risk/prevention measures+, no awake up reaction with pain stimuli, T 100.6 now, tachypnea RR 26-32, multiple coughing, SR, SBP up to 185, O2sat. over 97%, charge nurse evaluated too, will give Ativan 1 mg IV
--- NOTE | 2018-11-18 18:15 | NUR ---
SPORTS INFORMATION DIRECTOR: pt.is rest now, no tremor/Sz, RR WNL, O2sat. over 97%, BP 135/47, BS 240/ISS covered, GTF 10ml now, gradually will increase, Reglan given, all PM, skin, bedbath care done, last T100.6
--- NOTE | 2018-11-18 19:40 | NUR ---
RT PT RECEIVED TRACHED SHILEY 8 DCT ON [facility] VENT ON CHARTED AC MODE SETTINGS. NO SIGNS OF RESP DISTRESS/SOB NOTED AT THIS TIME. TRICOT KNITTER CHECKED. PT SUCTIONED. ALARMS SET AND AUDIBLE. AMBUBAG AT BEDSIDE. VENT CONNECTED TO RED OUTLET. WILL CONT TO MONITOR. Addendum: 11/18/18 at 194 by JESSICA MEEK RT Amended: Links added.
[2018-11-18] MEDS ORDERED: IV NS 0.9% 250 ML IV SCH (20:00)
--- NOTE | 2018-11-18 20:00 | NUR ---
Received patient lethargic off Diprivan gtt since 10 AM.SR.With trach to vent on AC mode. Oral care done.No apparent distress noted.VS stable.GT feeding in progress with 5 ml residual . Rate increased to 20 ml/hr goal rate of 55.HOB elevated.FC with yellow urine.NS infusing at TKO via SHREE PICC LINE and site intact.Turned and repositioned.
[2018-11-18] MEDS: PHENYTOIN SUSP UDC 100 MG/4 ML UDC GT SCH (21:04)
[2018-11-18] MEDS: ATORVASTATIN 40 MG TABLET GT SCH (22:05)
[2018-11-19] VITALS (39 sets, daily range): BP systolic 76–131; BP diastolic 30–57
--- NOTE | 2018-11-19 | NUR ---
Febrile 103.2.Bed bath and continuous cooling measure done.Tylenol administered as PRN. Turned and repositioned.Continue monitoring.
[2018-11-19] MEDS: CEFEPIME 1 GM in IV D5W 50 ML IV SCH (02:01)
[2018-11-19] MEDS: METOCLOPRAMIDE HCL 10 MG/2 ML VIAL IV SCH ×4 (04:06→22:04)
[2018-11-19] MEDS: PANTOPRAZOLE 40 MG VIAL IV SCH ×2 (04:06→16:09)
[2018-11-19 04:39] LABS: CALCIUM, SERUM 7.8 mg/dL (8.5-10.1); POTASSIUM 3.7 mmol/L (3.5-5.1)
[2018-11-19] MEDS: ACETAMINOPHEN 650 MG/20.3 ML UDC NG PRN ×2 (05:18→07:59)
[2018-11-19] MEDS: LORAZEPAM INJ 2 MG/ML VIAL IV PRN (05:19)
--- NOTE | 2018-11-19 05:20 | NUR ---
Patient remains febrile 101.7 Tylenol given,cooling measures continued and cooling blanket applied. Agitated and backing up the vent.PRN Ativan administered.Continue monitoring.
[2018-11-19] MEDS: BLOOD SUGAR DIAGNOSTIC 1 EACH STRIP IN SCH ×4 (05:51→23:55)
[2018-11-19] MEDS: INSULIN REGULAR, HUMAN 100 UNIT/ML 3 ML VIAL SQ PRN ×4 (05:51→23:56)
--- NOTE | 2018-11-19 06:21 | NUR ---
EMILIA MIDLINE dressing changed under aseptic technique.Site healthy.Had small pasty BM perineal care done.Turned and repositioned.Patient resting appears comfortable.
--- NOTE | 2018-11-19 06:59 | NUR ---
Paged SYSTEM CONTROLLER,MITCHELL for blood culture result GRAM NEGATIVE RODS.Not responded.Endorsed to day shift RN for continuity of care
--- NOTE | 2018-11-19 07:30 | NUR ---
INITIAL Received patient lethargic off Diprivan gtt since 10 AM 11/18.SR.With trach #8 SHILEY to vent started on CPAP mode. Oral care done.No apparent distress noted.VS stable with exception of temperature 1026 cooling measure continued medications given.GT feeding in progress with 5 ml residual .Rate increased to 35 ml/hr goal rate of 55.HOB elevated.FC with yellow urine.NS infusing at TKO via SHREE PICC LINE and site intact.Turned and repositioned. B
[2018-11-19] MEDS: CARVEDILOL 12.5 MG TABLET GT SCH ×2 (09:00→21:21)
[2018-11-19] MEDS ORDERED: IV NS 0.9% 500 ML IV ONE (09:00)
[2018-11-19] MEDS: ASPIRIN 81 MG TAB.CHEW NG SCH (09:11)
[2018-11-19] MEDS: PHENYTOIN SUSP UDC 100 MG/4 ML UDC GT SCH ×2 (09:11→21:21)
[2018-11-19 09:21] LABS: ABG BASE EXCESS 0.4 mmol/L; ABG OXYGEN SATURATION 97.6 % (92.0-98.5); ABG PCO2 33.9 mmHg (35.0-45.0); ABG PH 7.468 (7.350-7.450); ABG PO2 112.7 mmHg (75.0-100.0); AaDO2 133.5 mmHg; COHb 1.2 % (0.5-1.5); MetHb 1.3 % (0.0-1.5); O2Hb 95.2 % (94.0-97.0); SITE, ABG Right Radial
[2018-11-19] MEDS: INSULIN GLARGINE, 100 UNIT/ML CARTRIDGE SQ SCH ×2 (09:23→22:10)
[2018-11-19] MEDS: Z GUARD REMEDY 2 OZ OINT TP PRN (09:24)
[2018-11-19] MEDS: CLOTRIMAZOLE 1% 15 GM TUBE TP SCH ×2 (09:25→16:41)
[2018-11-19] MEDS: HYDROGEL DRESSING 90 GM TUBE TP SCH (09:25)
--- NOTE | 2018-11-19 09:48 | NUR ---
PULL PICC LINE IN SHREE CULTURED TIP SENT TO LAB PER MD RUIZ PT STARTED ON NS BOLUS AT 100 MLS/HR FOR 5 HOURS STARTED AT 0830 END TIME 1330
[2018-11-19] MEDS ORDERED: IV NS 0.9% 250 ML IV PRN (10:00)
--- NOTE | 2018-11-19 10:52 | NUR ---
PT NOTED TO MOVE FEET ARMS AND ATTEMPT TO OPEN EYES THOUGH NOT SUSTAINABLE UPON REQUEST RANDOM MOTION.
[2018-11-19] MEDS ORDERED: VANCOMYCIN 1.25 GM in IV D5W 500 ML IV SCH (11:00)
[2018-11-19] MEDS: GLUCERNA 1.2 1,000 ML BOTTLE NG PRN (11:07)
[2018-11-19 11:15] LABS: APPEARANCE,URINE CLOUDY (CLEAR); BILIRUBIN,URINE NEGATIVE (NEGATIVE); BLOOD, URINE TRACE-INTA Ery/uL (NEGATIVE); COLOR,URINE YELLOW (YELLOW); KETONES,URINE TRACE (NEGATIVE); LEUKOCYTE ESTERASE ,URINE 1+ (NEGATIVE); NITRITE, URINE NEGATIVE (NEGATIVE); PROTEIN,URINE 2+ mg/dl (NEGATIVE); UGLUCOSE NEGATIVE (NEGATIVE); UROBILINOGEN,URINE 0.2 EU/dL (0.2)
[2018-11-19 11:16] LABS: BASOPHILS # (AUTO) 0.1 /CMM (0.0-0.2); BASOPHILS % (AUTO) 0.8 % (0.0-2.0); EOSINOPHILS % (AUTO) 0.7 % (0.0-6.0); HEMATOCRIT 21 % (33-45); LYMPHOCYTES % (AUTO) 5.1 % (20.0-44.0); MEAN CORPUSCULAR HGB CONC 31 g/dl (31.0-36.0); MEAN CORPUSCULAR VOLUME 86 fL (82-100); MONOCYTES # (AUTO) 1.5 /CMM (0.1-1.30); MONOCYTES % (AUTO) 7.8 % (2.0-12.0); NEUTROPHILS # (AUTO) 16.5 /CMM (1.8-8.9); NEUTROPHILS % (AUTO) 85.6 % (43.0-81.0); PLATELET COUNT (AUTO) 347 /CMM (150-450); RED BLOOD CELL COUNT(AUTO) 2.48 MIL/uL (4.0-5.2); WHITE BLOOD COUNT (AUTO) 19.2 K/uL (4.3-11.0)
[2018-11-19 11:18] LABS: HEMOGLOBIN 6.5 g/dL (11.5-14.8)
--- NOTE | 2018-11-19 11:40 | NUR ---
MD ELLIE TRUONG FOR H/H VALUES
[2018-11-19 11:44] LABS: CREATININE, URINE 211.1 MG/DL (30.0-125.0); URINE TOTAL PROTEIN 159.4 mg/dL (0-11.9)
[2018-11-19 11:45] LABS: RBC,URINE 0-2 /HPF (0-2); WBC,URINE 21-50 /HPF (0-3)
[2018-11-19 11:46] LABS: BACTERIA,URINE Moderate /HPF (None Seen); SQUAMOUS EPITHELIAL CELL,UR Few /HPF (None Seen); YEAST,URINE Moderate /HPF (None Seen)
--- NOTE | 2018-11-19 11:48 | NUR ---
MD THIBODEAUX CALLED BACK NOTIFIED OF H/H 1 UNIT OF BLOOD ORDERED.
[2018-11-19 13:49] LABS: EOSINOPHIL,URINE None Seen
[2018-11-19] MEDS ORDERED: CEFEPIME 2 GM in IV D5W 100 ML IV SCH (14:00)
[2018-11-19 14:05] LABS: BAND % (MANUAL) 1 % (0.0-5.0); EOSINOPHILS % (MANUAL) 1 % (0-4); LYMPHOCYTES % (MANUAL) 2 % (16-48); MONOCYTES % (MANUAL) 9 % (0-11.0); NEUTROPHILS % (MANUAL) 87 (42-76)
--- NOTE | 2018-11-19 14:15 | NUR ---
SISTER JESENIA UPDATED ON PT STATUS OTHER FAMILY MEMBERS VISITING WELL NO INTERACTION BY PT
[2018-11-19] MEDS: MEROPENEM 500 MG in IV NS 0.9% 50 ML IV SCH (17:57)
--- NOTE | 2018-11-19 19:28 | NUR ---
END PT REMAINS SAFE ALL SHIFT ON CPAP ALL DAY PICC LINE REMOVED AND CULTURED TWO NORMAL SALINE BOLUS COMPLETED. PT STATED ON NEW ANTIBIOTIC PER ID DOCTOR. PT REMAINS ON COOLING BLANKET 1 UNIT OF PRBC'S COMPLETED. ENDORSED ARE TO PHOTO MASK INSPECTOR RN.
--- NOTE | 2018-11-19 20:21 | NUR ---
PUBLIC HEALTH VETERINARIAN. INITIAL ASSESSMENT. RECEIVED THE PT REST ON THE BED. TRACH TO VENT CONNECTED. PT IS NONVERBAL. DOES NOT FOLLOW COMMANDS. TRACH SHILEY#8, TV 450,FIO2 40%, PEEP 5. SAT 98%. NO ACUTE DISTRESS NOTED. BILINGUAL OFFICE ASSISTANT SHOWING NSR. IV RT UPPER ARM MID LINE. TKO RUNNING. GT INTACT. FEEDING GLUCERNA 40 ML/H. FC PATENT. FITO SOFT WRIST RESTRAINT CHECKED AND RELEASED, NO INJURY OR REDNESS NOTED. HOB ELEVATED. WILL CONTINUE TO MONITOR VITALS.
--- NOTE | 2018-11-19 21:30 | NUR ---
RT PT RECEIVED ON [facility] VENT WITH NOTED SETTING. TRACH PATENT AND SECURE. PT TOLERATING SETTING WELL. NO SOB OR DISTRESS NOTED AT THIS TIME. AMBU BAG AT [facility]. ALARMS SET AND AUDIBLE. VENT TO RED OUTLET. WILL CONTINUE TO MONITOR. Addendum: 11/19/18 at 2139 by MEKHI LÓPEZ RT Amended: Links added.
[2018-11-19] MEDS: ATORVASTATIN 40 MG TABLET GT SCH (22:04)
[2018-11-20] VITALS (24 sets, daily range): BP systolic 115–146; BP diastolic 41–91
--- NOTE | 2018-11-20 04:50 | NUR ---
OVERHAULER AM CARE. ORAL CARE, BED BATH GIVEN. LINEN CHANGED, REMAINING SAME VENT SETTINGS TOLERATED WELL. SAT00%. NO ACUTE DISTRESS NOTED, PAPER WINDER SHOWING NSR. IV RT UPPER ARM MID LINE. SALINE LOCK. FC PATENT. URINE DRAINING. HOB ELEVATED, FC PATENT, URINE DRAINING. HOB ELEVATED, TURN AND REPOSITION Q2H. WILL CONTINUE TO MONITOR VITALS.
[2018-11-20] MEDS: MEROPENEM 500 MG in IV NS 0.9% 50 ML IV SCH (05:01)
[2018-11-20] MEDS: PANTOPRAZOLE 40 MG VIAL IV SCH ×2 (05:02→17:27)
[2018-11-20] MEDS: METOCLOPRAMIDE HCL 10 MG/2 ML VIAL IV SCH ×4 (05:02→21:06)
[2018-11-20] MEDS: BLOOD SUGAR DIAGNOSTIC 1 EACH STRIP IN SCH ×4 (05:02→22:25)
[2018-11-20] MEDS: INSULIN REGULAR, HUMAN 100 UNIT/ML 3 ML VIAL SQ PRN ×4 (05:03→22:24)
[2018-11-20 05:06] LABS: BASOPHILS # (AUTO) 0.1 /CMM (0.0-0.2); BASOPHILS % (AUTO) 0.5 % (0.0-2.0); EOSINOPHILS % (AUTO) 1.9 % (0.0-6.0); HEMATOCRIT 24 % (33-45); HEMOGLOBIN 7.6 g/dL (11.5-14.8); LYMPHOCYTES % (AUTO) 7.2 % (20.0-44.0); MEAN CORPUSCULAR HGB CONC 32 g/dl (31.0-36.0); MEAN CORPUSCULAR VOLUME 84 fL (82-100); MONOCYTES # (AUTO) 1.4 /CMM (0.1-1.30); MONOCYTES % (AUTO) 10.1 % (2.0-12.0); NEUTROPHILS # (AUTO) 10.8 /CMM (1.8-8.9); NEUTROPHILS % (AUTO) 80.3 % (43.0-81.0); PLATELET COUNT (AUTO) 340 /CMM (150-450); RED BLOOD CELL COUNT(AUTO) 2.84 MIL/uL (4.0-5.2); WHITE BLOOD COUNT (AUTO) 13.5 K/uL (4.3-11.0)
[2018-11-20 05:39] LABS: ALBUMIN 1.6 g/dL (3.4-5.0); BILIRUBIN,TOTAL 0.3 mg/dL (0.2-1.0); MAGNESIUM 2.1 mg/dL (1.8-2.4); PHOSPHORUS 4.5 mg/dL (2.5-4.9); POTASSIUM 3.9 mmol/L (3.5-5.1); TOTAL PROTEIN, SERUM 5.9 g/dL (6.4-8.2)
--- NOTE | 2018-11-20 07:32 | NUR ---
BOILER ROOM OPERATOR OPENING NOTES RECEIVED PT FROM NIGHTSHIFT RN IN STABLE CONDITION. PT RESPONSIVE TO PAINFUL ALONG WITH TACTILE STIMULI, AND IS ABLE TO FOLLOW SIMPLE COMMANDS WHEN PROMOTED.TRACH NOTED. PT TOLERATING CPAP SETTING WELL. GTUBE NOTED TO BE PATENT AND INTACT. PLACEMENT VERIFIED VIA AUSCULTATION. PT TOLERATING GTUBE FEEDINGS WELL. NO RESIDUALS ASPIRATED AT THIS TIME. RIGHT UPPER ARM MIDLINE ALONG NOTED TO BE PATENT AND INTACT. NO REDNESS OR SIGNS OF DISTRESS NOTED. BILATERAL SOFT WRIST RESTRAINTS NOTED PT IS SEEN TO BE INTERFERING WITH INVASIVE LINES. NORMAL PERIPHERAL PULSES AND GOOD CAP REFILL NOTED. BED IN LOW LOCKED POSITION, SIDE RAILS UP X3, CALL LIGHT WITHIN REACH. WILL CONTINUE TO MONITOR
--- NOTE | 2018-11-20 07:40 | NUR ---
RT PT RECEIVED WITH A [employer] 8 TRACH ON THE VENT WITH NOTED SETTINGS. PT IS AWAKE AND RESPONDS TO STIMULI WHEN SX'D. VENT ALARMS ARE SET AND AUDIBLE WITH BVM BY BEDSIDE. LITHOPONE CHARGER CUFF PRESSURE NOTED. VENT IS PLUGGED INTO RED OUTLET. PT SX'D SMALL THIN PALE YELLOW SECRETIONS. NO RESPIRATORY DISTRESS NOTED AT THIS TIME, WILL CONTINUE TO MONITOR. Addendum: 11/20/18 at 1044 by PRAVIN BALTAZAR RT Amended: Links added.
--- NOTE | 2018-11-20 08:27 | NUR ---
COLLEGE TEACHER NOTES: DR BYERS ORDERS DR BYERS AT BEDSIDE. MD UPDATED ON PT'S CONDITION AND US RESULTS. VERBAL ORDER OBTAINED FROM MD TO CHANGE PT'S SY. WILL CARRY OUT ORDER
[2018-11-20] MEDS: CARVEDILOL 12.5 MG TABLET GT SCH ×2 (08:29→21:05)
[2018-11-20] MEDS: CLOTRIMAZOLE 1% 15 GM TUBE TP SCH (08:30)
[2018-11-20] MEDS: ASPIRIN 81 MG TAB.CHEW NG SCH (08:30)
[2018-11-20] MEDS: PHENYTOIN SUSP UDC 100 MG/4 ML UDC GT SCH ×2 (08:30→21:05)
[2018-11-20] MEDS: HYDROGEL DRESSING 90 GM TUBE TP SCH (08:30)
[2018-11-20] MEDS: INSULIN GLARGINE, 100 UNIT/ML CARTRIDGE SQ SCH ×2 (08:34→22:23)
--- NOTE | 2018-11-20 09:12 | NUR ---
RT PT PLACED ON T-PIECE COOL AEROSOL PER DR. SARA TRAN. PT TOLERATING WELL WITH NO RESPIRATORY DISTRESS NOTED. RN NOTIFIED AND AWARE OF CHANGE. Addendum: 11/20/18 at 1040 by PRAVIN BALTAZAR RT Amended: Links added.
[2018-11-20] MEDS: PROSOURCE / PROSTAT (PYXIS) 30 ML UDC GT SCH (11:38)
[2018-11-20 11:51] LABS: ABG BASE EXCESS 1.3 mmol/L; ABG OXYGEN SATURATION 97.7 % (92.0-98.5); ABG PCO2 40.9 mmHg (35.0-45.0); ABG PO2 109.3 mmHg (75.0-100.0); AaDO2 92.7 mmHg; COHb 0.7 % (0.5-1.5); MetHb 0.8 % (0.0-1.5); O2Hb 96.2 % (94.0-97.0); SITE, ABG Right Radial; VENT MODE, BG COOL AEROSOL 35%
[2018-11-20] MEDS ORDERED: CEFEPIME 1 GM in IV D5W 50 ML IV SCH (16:00)
--- NOTE | 2018-11-20 17:25 | NUR ---
DR. BYERS UPDATED ON PT'S CONDITION. PER MD "PT CAN BE DOWNGRADED TO [facility]"
[2018-11-20] MEDS: NYSTATIN TOP POWDER 15 GM BOTTLE TP SCH (17:27)
[2018-11-20] MEDS: CEFEPIME 2 GM in IV D5W 100 ML IV SCH (18:16)
--- NOTE | 2018-11-20 18:53 | NUR ---
ICU TRANSFER NOTES: PT TRANSPORTED TO [facility] ROOM 102 IN STABLE CONDITION. ALL NEEDS ANTICIPATED FOR AND MET DURING SHIFT. ALL DUE MEDS GIVEN. PRN CARE RENDERED. WOUND CARE RENDERED ORDERED. PT REPOSITIONED AND TURNED PER PROTOCOL. SY CATHETER CHANGED ORDERED AND PATENT AND INTACT. MIDLINE REMAINS PATENT. ENDORSED TO [facility] RN FOR MARK
[2018-11-20] MEDS: GLUCERNA 1.2 1,000 ML BOTTLE NG PRN (19:38)
--- NOTE | 2018-11-20 20:10 | NUR ---
RECEIVED PT ARLIN GORDONLY 8 ON COOL AEROSOL 28% FIO2. NO DISTRESS. SX'D FOR SML AMT OF THIN [place] SECRETIONS. B/S ARLIN MUNSON IS SECURE. WILL CONTINUE TO MONITOR. Addendum: 11/20/18 at 2012 by GENESIS MEZA RT Amended: Links added.
[2018-11-20] MEDS: ATORVASTATIN 40 MG TABLET GT SCH (21:05)
--- NOTE | 2018-11-20 21:47 | NUR ---
TD RN NOTES RECEIVED PT FROM BED, A/O X 1. UNABLE TO VERBALIZED. ON COOL AEROSOL NO RESPIRATORY DISTRESS NOTED. ON TELE MONITOR SR WITH PVC. ON SY CATH DRAINING YELLOW URINE. IV ACCESS ON EMILIA MIDLINE PATENT AND INTACT. ON BILATERAL SOFT RESTRAINTS. HEAD OF BED ELEVATED. SIDE RAILS UP. CALL LIGHT WITHIN REACH. BED ALARM ON. WILL CONTINUE TO MONITOR PT CLOSELY.
[2018-11-21] VITALS: BP 120/51
[2018-11-21] MEDS: METOCLOPRAMIDE HCL 10 MG/2 ML VIAL IV SCH ×4 (03:40→21:28)
[2018-11-21] MEDS: PANTOPRAZOLE 40 MG VIAL IV SCH ×2 (03:40→08:42)
[2018-11-21 04:00] VITALS: BP 141/52
[2018-11-21] MEDS: INSULIN REGULAR, HUMAN 100 UNIT/ML 3 ML VIAL SQ PRN ×4 (05:10→23:02)
[2018-11-21] MEDS: BLOOD SUGAR DIAGNOSTIC 1 EACH STRIP IN SCH ×4 (05:11→23:02)
--- NOTE | 2018-11-21 07:00 | NUR ---
RN NOTES RECEIVED PT ON BED, NONVERBAL , EYES OPEN , TRACH DEPENDENT, ON 28%COOL AEROSOL , NO SOB NOTED, ON TELE SR HR IN 80'S AT THIS TIME, SY DRINING TO GRAVITY , TOLERATING TF AT 55CC/HR WELL, NO RESIDUAL NOTED, R UPPER ARM MIDLINE SITE CLEAN, DRY AND INTACT, SR UP x3, CALL LIGHT WITHIN EASY REACH, BED LOCKED AND IN LOWEST POSITION , CONTINUE TO MONITOR
[2018-11-21 07:01] LABS: CALCIUM, SERUM 8.3 mg/dL (8.5-10.1); CREATININE 1.3 mg/dL (0.6-1.3); POTASSIUM 4.2 mmol/L (3.5-5.1)
--- NOTE | 2018-11-21 07:07 | NUR ---
TD RN NOTES NO ACUTE CHANGES NOTED THROUGHOUT THE SHIFT. PROVIDED COMFORT AND SAFETY. DUE MEDS GIVEN. WILL ENDORSE TO THE AM NURSE FOR CONTINUITY OF CARE.
[2018-11-21 08:00] VITALS: BP 155/59
[2018-11-21] MEDS: PHENYTOIN SUSP UDC 100 MG/4 ML UDC GT SCH ×2 (08:43→21:27)
[2018-11-21] MEDS: ASPIRIN 81 MG TAB.CHEW NG SCH (08:44)
[2018-11-21] MEDS: CARVEDILOL 12.5 MG TABLET GT SCH ×2 (08:44→21:27)
[2018-11-21] MEDS: INSULIN GLARGINE, 100 UNIT/ML CARTRIDGE SQ SCH ×2 (08:48→23:01)
[2018-11-21] MEDS: PROSOURCE / PROSTAT (PYXIS) 30 ML UDC GT SCH (08:53)
[2018-11-21] MEDS: Z GUARD REMEDY 2 OZ OINT TP PRN (08:54)
[2018-11-21] MEDS: HYDROGEL DRESSING 90 GM TUBE TP SCH (09:01)
[2018-11-21] MEDS: NYSTATIN TOP POWDER 15 GM BOTTLE TP SCH ×2 (09:03→16:17)
[2018-11-21] MEDS: LISINOPRIL (10MG) 10 MG TABLET PO SCH (10:22)
--- NOTE | 2018-11-21 11:06 | NUR ---
CHARGE NOTES TRANSFER TO MED SURG PER DR. POLK
--- NOTE | 2018-11-21 14:00 | NUR ---
RN NOTES SUPPORTIVE FAMILY AT THE BEDSIDE, TOLERATING TF WELL, CONTINUE TO MONITOR .
[2018-11-21 16:00] VITALS: BP 153/55
[2018-11-21] MEDS: CEFEPIME 2 GM in IV D5W 100 ML IV SCH (17:42)
--- NOTE | 2018-11-21 18:23 | NUR ---
RN NOTES NO SIGNIFICANT CHANGES NOTED ON THIS SHIFT, WILL ENDOSE TO TAPE SEWER NURSE FOR CONTINUITY OF CARE
[2018-11-21 20:00] VITALS: BP 169/64
[2018-11-21 21:00] VITALS: BP 169/64
--- NOTE | 2018-11-21 21:00 | NUR ---
RECEIVED PT ARLIN GORDONLY 8 ON COOL AEROSOL 28% FIO2. NO DISTRESS. SX'D FOR SML AMT OF THIN [place] SECRETIONS. B/S RALIN MUNSON IS SECURE. WILL CONTINUE TO MONITOR. Addendum: 11/21/18 at 2101 by GENESIS MEZA RT Amended: Links added.
[2018-11-21] MEDS: GLUCERNA 1.2 1,000 ML BOTTLE NG PRN (21:27)
[2018-11-21] MEDS: ATORVASTATIN 40 MG TABLET GT SCH (21:27)
[2018-11-22] MEDS: ACETAMINOPHEN 650 MG/20.3 ML UDC NG PRN (01:47)
[2018-11-22 04:00] VITALS: BP 132/57
[2018-11-22] MEDS: PANTOPRAZOLE 40 MG VIAL IV SCH ×2 (04:00→17:50)
[2018-11-22] MEDS: METOCLOPRAMIDE HCL 10 MG/2 ML VIAL IV SCH ×3 (04:00→17:41)
[2018-11-22 05:00] VITALS: BP 132/57
[2018-11-22] MEDS: BLOOD SUGAR DIAGNOSTIC 1 EACH STRIP IN SCH ×3 (05:35→17:59)
[2018-11-22] MEDS: INSULIN REGULAR, HUMAN 100 UNIT/ML 3 ML VIAL SQ PRN ×3 (05:41→18:00)
[2018-11-22 07:02] LABS: BASOPHILS # (AUTO) 0.1 /CMM (0.0-0.2); BASOPHILS % (AUTO) 0.8 % (0.0-2.0); EOSINOPHILS % (AUTO) 2.2 % (0.0-6.0); HEMATOCRIT 26 % (33-45); HEMOGLOBIN 8.6 g/dL (11.5-14.8); LYMPHOCYTES # (AUTO) 1.1 /CMM (0.8-4.8); LYMPHOCYTES % (AUTO) 10.6 % (20.0-44.0); MEAN CORPUSCULAR HGB CONC 33 g/dl (31.0-36.0); MEAN CORPUSCULAR VOLUME 84 fL (82-100); MONOCYTES # (AUTO) 1.3 /CMM (0.1-1.30); MONOCYTES % (AUTO) 12.3 % (2.0-12.0); NEUTROPHILS # (AUTO) 7.9 /CMM (1.8-8.9); NEUTROPHILS % (AUTO) 74.1 % (43.0-81.0); PLATELET COUNT (AUTO) 472 /CMM (150-450); RED BLOOD CELL COUNT(AUTO) 3.15 MIL/uL (4.0-5.2); WHITE BLOOD COUNT (AUTO) 10.6 K/uL (4.3-11.0)
[2018-11-22 07:44] LABS: CALCIUM, SERUM 8.6 mg/dL (8.5-10.1); CREATININE 1.2 mg/dL (0.6-1.3); POTASSIUM 4.1 mmol/L (3.5-5.1)
[2018-11-22 08:00] VITALS: BP 162/67
[2018-11-22] MEDS: PHENYTOIN SUSP UDC 100 MG/4 ML UDC GT SCH ×2 (09:06→21:42)
[2018-11-22] MEDS: CARVEDILOL 12.5 MG TABLET GT SCH ×2 (09:06→21:42)
[2018-11-22] MEDS: ASPIRIN 81 MG TAB.CHEW NG SCH (09:07)
[2018-11-22] MEDS: LISINOPRIL (10MG) 10 MG TABLET PO SCH (09:07)
[2018-11-22] MEDS: PROSOURCE / PROSTAT (PYXIS) 30 ML UDC GT SCH (09:07)
[2018-11-22] MEDS: INSULIN GLARGINE, 100 UNIT/ML CARTRIDGE SQ SCH (09:12)
[2018-11-22] MEDS: NYSTATIN TOP POWDER 15 GM BOTTLE TP SCH ×2 (09:13→17:42)
[2018-11-22] MEDS: HYDROGEL DRESSING 90 GM TUBE TP SCH (09:14)
[2018-11-22] MEDS ORDERED: LISINOPRIL (10MG) 10 MG TABLET PO ONE (10:00)
[2018-11-22 16:00] VITALS: BP 139/73
[2018-11-22] MEDS: CEFEPIME 2 GM in IV D5W 100 ML IV SCH (17:54)
--- NOTE | 2018-11-22 19:30 | NUR ---
MS RN NOTE: RECEIVED PT ON BED AWAKE WITH NO APPARENT DISTRESS NOTED. NO FACIAL GRIMACING OR ANY SIGNS OF PAIN NOTED. ON COOL AEROSOL, SATURATING WELL. NO SOB NOTED. GT INTACT AND PATENT, NO RESIDUAL NOTED AT THIS TIME. RIGHT UPPER ARM MIDLINE INTACT AND PATENT, FLUSHING WELL. SY CATH INTACT AND DRAINING WELL. KEPT CLEAN, DRY AND COMFORTABLE. SAFETY AND FALL PRECAUTIONS OBSERVED AND MAINTAINED. WILL CONTINUE TO MONITOR PT.
[2018-11-22 20:00] VITALS: BP 129/81
[2018-11-22 21:42] VITALS: BP 129/81
[2018-11-22] MEDS: ATORVASTATIN 40 MG TABLET GT SCH (21:42)
--- NOTE | 2018-11-22 23:29 | NUR ---
ADMINISTRATIVE SPECIALIST NOTE: PATIENT WAS DISCHARGED IN STABLE CONDITION. NO APPARENT DISTRESS NOTED. NO FACIAL GRIMACING OR ANY SIGNS OF PAIN NOTED. ON COOL AEROSOL, NO SOB NOTED. VITAL SIGNS WNL. DISCHARGE INSTRUCTIONS GIVEN. PICTURES TAKEN AND PLACED ON CHART. KEPT CLEAN, DRY AND COMFORTABLE.
[2018-11-23] MEDS ORDERED: LISINOPRIL (10MG) 10 MG TABLET PO SCH (09:00)
== END 2018-11-22 23:52 | disposition short-term general hospital (02) | DRG 4 ==
LOC: ER 12:25 → ICU 13:30 → TELE-TD 11-20 18:36 → MEDSG1 11-21 11:05
PROVIDERS: ADMIT Nurse Practitioner Acute Care
PROC: 05H533Z Insertion of Infusion Device into Right Subclavian Vein, Percutaneous Approach (ICD-10-PCS; 2018-11-04)
PROC: 5A1955Z Respiratory Ventilation, Greater than 96 Consecutive Hours (ICD-10-PCS; 2018-11-05)
PROC: 0BH17EZ Insertion of Endotracheal Airway into Trachea, Via Natural or Artificial Opening (ICD-10-PCS; 2018-11-05)
PROC: 03HC33Z Insertion of Infusion Device into Left Radial Artery, Percutaneous Approach (ICD-10-PCS; 2018-11-05)
PROC: 02HV33Z Insertion of Infusion Device into Superior Vena Cava, Percutaneous Approach (ICD-10-PCS; 2018-11-05)
PROC: B548ZZA Ultrasonography of Superior Vena Cava, Guidance (ICD-10-PCS; 2018-11-05)
PROC: 0B110F4 Bypass Trachea to Cutaneous with Tracheostomy Device, Open Approach (ICD-10-PCS; principal; 2018-11-17)
PROC: 0DH63UZ Insertion of Feeding Device into Stomach, Percutaneous Approach (ICD-10-PCS; 2018-11-17)
PROC: 0DJ08ZZ Inspection of Upper Intestinal Tract, Via Natural or Artificial Opening Endoscopic (ICD-10-PCS; 2018-11-17)
PROC: 30233N1 Transfusion of Nonautologous Red Blood Cells into Peripheral Vein, Percutaneous Approach (ICD-10-PCS; 2018-11-19)
DX: A41.59 Other Gram-negative sepsis (principal); R65.21 Severe sepsis with septic shock; I21.4 Non-ST elevation (NSTEMI) myocardial infarction; E11.11 Type 2 diabetes mellitus with ketoacidosis with coma; N17.0 Acute kidney failure with tubular necrosis; I50.23 Acute on chronic systolic (congestive) heart failure; G92 Toxic encephalopathy; J69.0 Pneumonitis due to inhalation of food and vomit; I63.412 Cerebral infarction due to embolism of left middle cerebral artery; J96.00 Acute respiratory failure, unspecified whether with hypoxia or hypercapnia; E44.0 Moderate protein-calorie malnutrition; D68.59 Other primary thrombophilia; E87.0 Hyperosmolality and hypernatremia; I13.0 Hypertensive heart and chronic kidney disease with heart failure and stage 1 through stage 4 chronic kidney disease, or unspecified chronic kidney disease; E87.1 Hypo-osmolality and hyponatremia; K92.2 Gastrointestinal hemorrhage, unspecified; B37.49 Other urogenital candidiasis; J98.11 Atelectasis; E87.4 Mixed disorder of acid-base balance; A41.9 Sepsis, unspecified organism; E11.22 Type 2 diabetes mellitus with diabetic chronic kidney disease; E66.01 Morbid (severe) obesity due to excess calories; E78.5 Hyperlipidemia, unspecified; E83.42 Hypomagnesemia; E87.6 Hypokalemia; I25.5 Ischemic cardiomyopathy; N18.9 Chronic kidney disease, unspecified; L30.4 Erythema intertrigo; R13.10 Dysphagia, unspecified; Z85.118 Personal history of other malignant neoplasm of bronchus and lung; Z86.73 Personal history of transient ischemic attack (TIA), and cerebral infarction without residual deficits; Z87.891 Personal history of nicotine dependence; Z79.84 Long term (current) use of oral hypoglycemic drugs; J45.909 Unspecified asthma, uncomplicated; D72.829 Elevated white blood cell count, unspecified; D47.3 Essential (hemorrhagic) thrombocythemia; Z68.32 Body mass index [BMI] 32.0-32.9, adult; G40.901 Epilepsy, unspecified, not intractable, with status epilepticus; E88.09 Other disorders of plasma-protein metabolism, not elsewhere classified; M62.50 Muscle wasting and atrophy, not elsewhere classified, unspecified site; E11.65 Type 2 diabetes mellitus with hyperglycemia; J01.30 Acute sphenoidal sinusitis, unspecified; E86.1 Hypovolemia; R29.712 NIHSS score 12; B96.5 Pseudomonas (aeruginosa) (mallei) (pseudomallei) as the cause of diseases classified elsewhere; D64.9 Anemia, unspecified; B35.6 Tinea cruris; B96.1 Klebsiella pneumoniae [K. pneumoniae] as the cause of diseases classified elsewhere
CPT/HCPCS: 31720; 36415; 36569; 36600; 43246; 70450-TC; 71045-TC; 74018; 76705-TC; 80048-TC; 80053-TC; 80061-TC; 80076-TC; 80185-TC; 80202-TC; 80305; 81000-TC; 82310-TC; 82570-TC; 82803-TC; 82962-TC; 83605-TC; 83735-TC; 83880; 83935-TC; 84100-TC; 84155-TC; 84300-TC; 84443-TC; 84484-TC; 85025-TC; 85378-TC; 85730-TC; 86850-TC; 86921-TC; 87040-TC; 87070-TC; 87081-TC; 87086-TC; 87186-TC; 87400; 87899; 93307-TC; 94002-TC; 94003-TC; 94640-TC; 94760-TC; 95819-TC; A4216; A4217; A6248; A6253; A6402; A6403; A7526; C1751; C9113; G0378; G0480; J0133; J0360; J0692; J0696; J1165; J1170; J1610; J1644; J1815; J1940; J2060; J2185; J2405; J2543; J2704; J2765; J3370; J3475; J3480; J3490; J7030; J7040; J7050; J7060; P9016-BL

== ENCOUNTER 2019-03-28 18:25 | Emergency (ER) | payer MEDICARE, MEDICAID ==
[~2019-03-28] VITALS: Ht 165.1 cm; Wt 88.0 kg
[~2019-03-28 18:25] MED LIST: ACET1TAB25 PO; ASPI81TA44 PO; ATEN25TA PO; CHOL400T11 PO; DOCU-141 PO; GLIP5TAB13 PO; MELA3TAB PO; METF-440 PO; METH500T6 PO; PRAV20TA4 PO; UBID100C13 PO; VIT1CAPS9 PO; VITA1TAB56 PO
--- NOTE | 2019-03-28 18:25 | NUR ---
BIB RA FROM [facility]ARE FACILITY,UNRESPONSIVE SINCE 4:30 PM, PT CAME IN WITH VENT, RT FROM FACILITY AT BEDSIDE. TO ER BED 8, HOOKED TO BILINGUAL ELEMENTARY SCHOOL TEACHER. ONGOING IV NS FLUID AT 700ML KVO.
[2019-03-28] MEDS ORDERED: Magnesium 1 GM/2 ML VIAL IV ONE (18:30)
[2019-03-28] MEDS ORDERED: CALCIUM CHLORIDE 1,000 MG/10 ML DISP.SYRIN IV ONE (18:30)
[2019-03-28] MEDS ORDERED: EPINEPHRINE (1:10,000) SYRINGE 1 MG/10 ML DISP.SYRIN IVP ONE (18:30)
--- NOTE | 2019-03-28 18:38 | NUR ---
PATIENT WENT TO [facility], ACLS PROTOCOL STARTED IMMEDIATELY.
--- NOTE | 2019-03-28 18:39 | NUR ---
REFER TO CODE SHEET
--- NOTE | 2019-03-28 18:39 | NUR ---
RT NOTE UPON ARRIVAL CPR ALREADY INITIATED. PT PLACED ON AMBU BAG @ 15LPM. PT @ 1908.
[2019-03-28] MEDS ORDERED: SODIUM BICARBONATE SYR 50 MEQ/50 ML DISP.SYRIN ONE (18:49)
[2019-03-28] MEDS ORDERED: EPINEPHRINE (1:1000) 1 MG in IV D5W 250 ML IV PRN (19:00)
--- NOTE | 2019-03-28 19:18 | NUR ---
DR RATLIFF AND FAMILY IN CONVERSATION
--- NOTE | 2019-03-28 19:24 | NUR ---
DR ABIGAIL BURNETTE NOTIFIED OF .
--- NOTE | 2019-03-28 19:34 | NUR ---
[facility] OFFICE CALLED. NOT CORONERS CASE, SPOKE WITH BANDAR.
--- NOTE | 2019-03-28 19:42 | NUR ---
[facility] NOTIFIED OF . SPOKE WITH JOSÉ. CASE# [id number]
[2019-03-28 20:31] VITALS: BP 0/0
--- NOTE | 2019-03-28 22:10 | NUR ---
PT BRAEDEN SAMUEL WITH SECURITY.
== END 2019-03-28 20:32 ==
LOC: ER 18:29
DX: I46.9 Cardiac arrest, cause unspecified (principal); I13.0 Hypertensive heart and chronic kidney disease with heart failure and stage 1 through stage 4 chronic kidney disease, or unspecified chronic kidney disease; E11.22 Type 2 diabetes mellitus with diabetic chronic kidney disease; N18.9 Chronic kidney disease, unspecified; N17.9 Acute kidney failure, unspecified; J96.90 Respiratory failure, unspecified, unspecified whether with hypoxia or hypercapnia; Z86.73 Personal history of transient ischemic attack (TIA), and cerebral infarction without residual deficits; Z98.890 Other specified postprocedural states; Z60.2 Problems related to living alone; Z79.82 Long term (current) use of aspirin
CPT/HCPCS: 31720; 92950; 99285; J0171 ×2; J3475; J3490 ×2; J7030; J7060